=== PATIENT | male | born 1975 | race American Indian/Alaskan Native ===

== ENCOUNTER 2016-12-06 09:58 | Emergency (ER) | payer OTHER ==
[2016-12-06 10:48] LABS: Basophils % (Auto) 0.6 % (0.0-1.8); Eosinophils % (Auto) 1.1 % (0.0-4.3); Hematocrit 41.7 % (35.5-45.6); Hemoglobin 13.4 gm/dl (11.8-15.2); Mean Corpuscular HGB Conc 32 % (32-34); Mean Corpuscular Hemoglobin 27 pg (28-32); Mean Corpuscular Volume 84 fl (84-94); Platelet Count 277 K/mm3 (140-440); Red Blood Count 4.97 M/mm3 (3.65-5.03); Red Cell Distribution Width 12.9 % (13.2-15.2); White Blood Count 7.2 K/mm3 (4.5-11.0)
[2016-12-06 10:52] LABS: Anion Gap 16 mmol/L; BUN/Creatinine Ratio 16.25; Blood Urea Nitrogen 13 mg/dL (9-20); Calcium 9.2 mg/dL (8.4-10.2); Carbon Dioxide 28 mmol/L (22-30); Chloride 101.8 mmol/L (98-107); Glucose 92 mg/dL (75-100); Potassium 3.9 mmol/L (3.6-5.0); Sodium 142 mmol/L (137-145)
[2016-12-06 11:10] LABS: INR 1.06 (0.87-1.13); Partial Thromboplastin Time 28.8 Sec. (24.2-36.6)
[2016-12-06] MEDS ORDERED: NACL 0.9% 1000 ML 1,000 ML IV ONE (12:04)
--- NOTE | 2016-12-06 12:04 | Emergency Department Report ---
ED Palpitations HPI - General Chief Complaint: Arrhythmia/Palpitations Stated Complaint: FATIGUE,MUSCLES ACHE Time Seen by Provider: 12/06/16 11:46 Source: patient Mode of arrival: Ambulatory Limitations: No Limitations - History of Present Illness MD Complaint: rapid heart beat, "heart racing", "skipped beats", palpitations, irregular heart beat -: Sudden Arrythmia History: atrial fibrillation Associated Symptoms: near-syncope. denies: chest pain, shortness of breath, syncope, nausea/vomiting, anxiety, diaphoresis, cough, parasthesias, feeling of impending doom - Related Data Home Medications Medication Instructions Recorded Confirmed Last Taken Tamsulosin [Flomax] 0.4 mg PO QHS 10/25/13 12/06/16 10/04/16 21:00 Losartan [Cozaar] 100 mg PO QDAY 01/19/14 12/06/16 10/04/16 20:00 NIFEdipine [NIFEdipine ER] 90 mg PO DAILY 06/08/14 12/06/16 10/04/16 08:00 Aspirin BABY CHEW TAB 325 mg PO QDAY 10/04/16 12/06/16 10/04/16 08:00 Hydrochlorothiazide [HCTZ] 50 mg PO QDAY 10/04/16 12/06/16 10/04/16 10:00 Carvedilol [Coreg] 6.25 mg PO BID 12/06/16 12/06/16 Unknown Flecainide [Tambocor] 100 mg PO Q12H 12/06/16 12/06/16 Unknown Pot Chloride/Deangelo Phos/Mag 1 each PO QDAY 12/06/16 12/06/16 Unknown [Medi-Lyte Tablet] Previous Rx's Medication Instructions Recorded Last Taken Type Dabigatran [Pradaxa] 150 mg PO BID #90 capsule 12/06/16 Unknown Rx Allergies Allergy/AdvReac Type Severity Reaction Status Date / Time No Known Allergies Allergy Verified 12/06/16 10:05 ED Review of Systems ROS: Stated complaint: FATIGUE,MUSCLES ACHE Other details as noted in HPI Comment: All other systems reviewed and negative ED Past Medical Hx - Past Medical History Hx Hypertension: Yes Hx Congestive Heart Failure: Yes Hx Diabetes: No Hx Arthritis: Yes Hx Asthma: No Hx COPD: No Hx HIV: No Additional medical history: Enlarged prostate, atrial fibrillation, Obstructive sleep apnea, carl's angina. - Surgical History Past Surgical History?: No - Social History Smoking Status: Former Smoker Substance Use Type: None - Medications Home Medications: Home Medications Medication Instructions Recorded Confirmed Last Taken Type Tamsulosin [Flomax] 0.4 mg PO QHS 10/25/13 12/06/16 10/04/16 21:00 History Losartan [Cozaar] 100 mg PO QDAY 01/19/14 12/06/16 10/04/16 20:00 History NIFEdipine [NIFEdipine ER] 90 mg PO DAILY 06/08/14 12/06/16 10/04/16 08:00 History Aspirin BABY CHEW TAB 325 mg PO QDAY 10/04/16 12/06/16 10/04/16 08:00 History Hydrochlorothiazide [HCTZ] 50 mg PO QDAY 10/04/16 12/06/16 10/04/16 10:00 History Carvedilol [Coreg] 6.25 mg PO BID 12/06/16 12/06/16 Unknown History Dabigatran [Pradaxa] 150 mg PO BID #90 capsule 12/06/16 Unknown Rx Flecainide [Tambocor] 100 mg PO Q12H 12/06/16 12/06/16 Unknown History Pot Chloride/Deangelo Phos/Mag 1 each PO QDAY 12/06/16 12/06/16 Unknown History [Medi-Lyte Tablet] ED Physical Exam - General Limitations: No Limitations General appearance: alert, in no apparent distress - Head Head exam: Present: atraumatic, normocephalic - Eye Eye exam: Present: normal appearance - ENT ENT exam: Present: normal exam, normal orophraynx, mucous membranes moist - Neck Neck exam: Present: normal inspection - Respiratory Respiratory exam: Present: normal lung sounds bilaterally. Absent: respiratory distress - Cardiovascular Cardiovascular Exam: Present: tachycardia, irregular rhythm. Absent: systolic murmur, diastolic murmur, rubs, gallop - GI/Abdominal GI/Abdominal exam: Present: soft, normal bowel sounds - Rectal Rectal exam: Present: deferred - Extremities Exam Extremities exam: Present: normal inspection - Back Exam Back exam: Present: normal inspection - Neurological Exam Neurological exam: Present: alert, oriented X3 - Psychiatric Psychiatric exam: Present: normal affect, normal mood - Skin Skin exam: Present: warm, dry, intact, normal color. Absent: rash ED Course Vital Signs 12/06/16 12/06/16 12/06/16 10:07 11:55 11:56 Temperature 99.0 F Pulse Rate 66 Respiratory 17 Rate Blood Pressure 148/97 147/91 O2 Sat by Pulse 100 99 99 Oximetry 12/06/16 12/06/16 12/06/16 11:58 12:00 12:02 Temperature Pulse Rate 63 99 H 75 Respiratory 11 L 14 14 Rate Blood Pressure 147/91 130/100 130/100 O2 Sat by Pulse 98 99 100 Oximetry 12/06/16 12/06/16 12/06/16 12:04 12:06 12:08 Temperature Pulse Rate 82 86 84 Respiratory 12 13 22 Rate Blood Pressure 130/100 130/100 130/100 O2 Sat by Pulse 99 98 99 Oximetry 12/06/16 12/06/16 12/06/16 12:10 12:12 12:14 Temperature Pulse Rate 85 102 H 97 H Respiratory 19 12 21 Rate Blood Pressure 130/100 130/100 130/100 O2 Sat by Pulse 97 99 98 Oximetry 12/06/16 12/06/16 12:16 12:53 Temperature Pulse Rate 125 H Respiratory 22 14 Rate Blood Pressure 130/100 O2 Sat by Pulse 98 Oximetry ED Medical Decision Making - Lab Data Result diagrams: 12/06/16 10:20 12/06/16 10:20 - EKG Data -: EKG Interpreted by Me Rate: tachycardia - EKG Data Interpretation: unchanged when compared t - Radiology Data Radiology results: report reviewed, image reviewed - Medical Decision Making patient seen here by me and his a normal rate btw 80-95 , on flutter, cardiology saw the patient here in the er and recommended to increase flecaniode , and put him or pradoxa for anticoagulation. Critical care attestation.: If time is entered above; I have spent that time in minutes in the direct care of this critically ill patient, excluding procedure time. ED Disposition Clinical Impression: Heart failure, Paroxysmal atrial fibrillation Disposition: DISCHARGED TO HOME OR SELFCARE Is pt being admited?: No Does the pt Need Aspirin: No Condition: Good Instructions: Palpitations (ED), Supraventricular Tachycardia (ED) Prescriptions: Dabigatran [Pradaxa] 150 mg PO BID #90 capsule Time of Disposition: 14:04
--- NOTE | 2016-12-06 14:09 | Consultation ---
History of Present Illness Consult date: 12/06/16 Consult reason: atrial fibrillation History of present illness: The patient's a 41-year-old man with a history of chronic intermittent atrial fibrillation, and a mild to moderate nonischemic cardiomyopathy. A cardiac catheterization 2 years ago demonstrated normal coronaries, and his left ventricular ejection fraction has been 40-45% by echocardiogram and left ventricle angiography. He has been treated with multiple antiarrhythmic medications in the past, initially with amiodarone for atrial fibrillation suppression. 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 He was switched to sotalol, which was ultimately discontinued for poor efficaciously. Currently he is on flecainide, which is being titrated by his branch sales and service representative. His past several office echocardiograms have demonstrated a persistence of atrial fibrillation. Ultimately, he is being considered for possible atrial fibrillation ablation in the near future. He presents to the emergency room at this time with palpitations, an ECG demonstrated atrial fibrillation. His rate control on my visit to his bedside in the emergency room is reasonable at 96 to 100s ventricular rate. He is otherwise comfortable, no chest pain, no edema and no unusual shortness of breath. For unclear reasons, he no longer takes his Pradaxa for oral anticoagulation. There is no recent history of bleeding, anemia and his hematocrit on the current visit is normal at 41. Past History Past Medical History: atrial fib, heart failure Medications and Allergies Allergies Allergy/AdvReac Type Severity Reaction Status Date / Time No Known Allergies Allergy Verified 12/06/16 10:05 Home Medications Medication Instructions Recorded Confirmed Last Taken Type Tamsulosin [Flomax] 0.4 mg PO QHS 10/25/13 12/06/16 10/04/16 21:00 History Losartan [Cozaar] 100 mg PO QDAY 01/19/14 12/06/16 10/04/16 20:00 History NIFEdipine [NIFEdipine ER] 90 mg PO DAILY 06/08/14 12/06/16 10/04/16 08:00 History Aspirin BABY CHEW TAB 325 mg PO QDAY 10/04/16 12/06/16 10/04/16 08:00 History Hydrochlorothiazide [HCTZ] 50 mg PO QDAY 10/04/16 12/06/16 10/04/16 10:00 History Carvedilol [Coreg] 6.25 mg PO BID 12/06/16 12/06/16 Unknown History Dabigatran [Pradaxa] 150 mg PO BID #90 capsule 12/06/16 Unknown Rx Flecainide [Tambocor] 100 mg PO Q12H 12/06/16 12/06/16 Unknown History Pot Chloride/Deangelo Phos/Mag 1 each PO QDAY 12/06/16 12/06/16 Unknown History [Medi-Lyte Tablet] Review of Systems Cardiovascular: palpitations, shortness of breath, no chest pain, no orthopnea, no rapid/irregular heart beat, no edema, no syncope, no lightheadedness Physical Examination Vital Signs Temp Pulse Resp BP Pulse Ox 99.0 F 66 17 148/97 100 12/06/16 10:07 12/06/16 10:07 12/06/16 10:07 12/06/16 10:07 12/06/16 10:07 General appearance: no acute distress HEENT: Positive: PERRL Neck: Positive: neck supple Cardiac: Positive: irregularly irregular Lungs: Positive: clear to auscultation Neuro: Positive: Grossly Intact Abdomen: Positive: Soft Male genitourinary: Positive: deferred Skin: Positive: Clear Extremities: Absent: edema Results 12/06/16 10:20 12/06/16 10:20 Coagulation 12/06/16 Range/Units 10:20 PT 13.7 (12.2-14.9) Sec. INR 1.06 (0.87-1.13) APTT 28.8 (24.2-36.6) Sec. CBC 12/06/16 Range/Units 10:20 WBC 7.2 (4.5-11.0) K/mm3 RBC 4.97 (3.65-5.03) M/mm3 Hgb 13.4 (11.8-15.2) gm/dl Hct 41.7 (35.5-45.6) % Plt Count 277 (140-440) K/mm3 Lymph # 2.1 (1.2-5.4) K/mm3 Power # 1.1 H (0.0-0.8) K/mm3 Eos # 0.1 (0.0-0.4) K/mm3 Baso # 0.0 (0.0-0.1) K/mm3 Comprehensive Metabolic Panel 06/01/17 Range/Units 10:20 Sodium 142 (137-145) mmol/L Potassium 3.9 (3.6-5.0) mmol/L Chloride 101.8 (98-107) mmol/L Carbon Dioxide 28 (22-30) mmol/L BUN 13 (9-20) mg/dL Creatinine 0.8 (0.8-1.5) mg/dL Glucose 92 (75-100) mg/dL Calcium 9.2 (8.4-10.2) mg/dL EKG interpretations - Telemetry EKG Rhythm: Atrial Fibrillation Assessment and Plan - Patient Problems (1) Atrial fibrillation with rapid ventricular response Current Visit: No Status: Acute Plan to address problem: The patient should continue flecainide for his atrial fibrillation, but we will resume Pradaxa 150 mg twice a day, oral anticoagulation. Otherwise, he is stable to follow up with his branch sales and service representative in the outpatient in a few days. No further inpatient cardiac workup is indicated.
[2016-12-06 14:50] VITALS: BP 134/94
== END 2016-12-06 15:08 | disposition home or self-care (01) ==
LOC: ED 09:58
DX: I50.9 Heart failure, unspecified (principal); I48.0 Paroxysmal atrial fibrillation; I10 Essential (primary) hypertension; M19.90 Unspecified osteoarthritis, unspecified site; Z87.891 Personal history of nicotine dependence; Z79.82 Long term (current) use of aspirin
CPT/HCPCS: 36415; 80048; 84484; 85025; 85610; 85730; 93005; 93010; 96360; 99284; J7030

== ENCOUNTER 2017-02-28 19:42 | Emergency (ER) | payer OTHER ==
[2017-02-28 20:02] VITALS: BP 126/88
[2017-02-28] MEDS ORDERED: ZOFRAN ONE (20:36)
[2017-02-28] MEDS ORDERED: TORADOL ONE (20:36)
[2017-02-28] MEDS ORDERED: NACL 0.9% 1000 ML 0 ML ONE (20:37)
[2017-02-28] MEDS ORDERED: MORPHINE ONE (20:37)
--- NOTE | 2017-02-28 20:42 | Emergency Department Report ---
ED Male HPI - General Chief complaint: Urogenital-Male Stated complaint: BURNING SENSATION,LOWER ABD PAIN Time Seen by Provider: 02/28/17 20:31 Source: patient Mode of arrival: Ambulatory Limitations: No Limitations - History of Present Illness Initial comments: This is a 41-year-old male nontoxic, well nourished in appearance, no acute signs of distress presently ED complaining of a penile discharge, dysuria 2 weeks. That he had intermittent low abdominal cramps but denies any abdominal cramps or abdominal pain today. Patient stated 2 weeks ago he had sex with his partner but admitted she was diagnosed with gonorrhea/chlamydia. Patient that he wants to be checked for STD. Patient denies any abdominal pain, nausea, vomiting, fever, chills, headache, testicular pain, testicular swelling, stiff neck, chest pain or shortness of breath. Patient stated pedal discharge is white in color. Patient denies any odor. Denies any back pain. Denies any allergies or past medical history. MD Complaint: penile discharge, dysuria -: Gradual, week(s) (2) Location: penis Radiation: none Severity: mild Severity scale (0 -10): 4 Quality: burning Consistency: constant Improves with: none Worsens with: none discharge, dysuria. denies: swelling, mass, rash, urinary retention, blood in urine, fever, nausea/vomiting, incontinence - Related Data Home Medications Medication Instructions Recorded Confirmed Last Taken Tamsulosin [Flomax] 0.4 mg PO QHS 10/25/13 12/06/16 10/04/16 21:00 Losartan [Cozaar] 100 mg PO QDAY 01/19/14 12/06/16 10/04/16 20:00 NIFEdipine [NIFEdipine ER] 90 mg PO DAILY 06/08/14 12/06/16 10/04/16 08:00 Aspirin BABY CHEW TAB 325 mg PO QDAY 10/04/16 12/06/16 10/04/16 08:00 Hydrochlorothiazide [HCTZ] 50 mg PO QDAY 10/04/16 12/06/16 10/04/16 10:00 Carvedilol [Coreg] 6.25 mg PO BID 12/06/16 12/06/16 Unknown Flecainide [Tambocor] 100 mg PO Q12H 12/06/16 12/06/16 Unknown Pot Chloride/Deangelo Phos/Mag 1 each PO QDAY 12/06/16 12/06/16 Unknown [Medi-Lyte Tablet] Previous Rx's Medication Instructions Recorded Last Taken Type Dabigatran [Pradaxa] 150 mg PO BID #90 capsule 12/06/16 Unknown Rx Sulfamethoxazole/Trimethoprim 1 each PO BID #20 tablet 02/28/17 Unknown Rx [Bactrim DS TAB] Allergies Allergy/AdvReac Type Severity Reaction Status Date / Time No Known Allergies Allergy Verified 12/06/16 10:05 ED Review of Systems ROS: Stated complaint: BURNING SENSATION,LOWER ABD PAIN Other details as noted in HPI Constitutional: denies: chills, fever Eyes: denies: eye pain, eye discharge, vision change ENT: denies: ear pain, throat pain Respiratory: denies: cough, shortness of breath, wheezing Cardiovascular: denies: chest pain, palpitations Endocrine: no symptoms reported Gastrointestinal: denies: abdominal pain, nausea, diarrhea Genitourinary: dysuria, discharge. denies: urgency, frequency, hematuria, testicular pain, testicular mass Musculoskeletal: denies: back pain, joint swelling, arthralgia Skin: denies: rash, lesions Neurological: denies: headache, weakness, paresthesias Psychiatric: denies: anxiety, depression Hematological/Lymphatic: denies: easy bleeding, easy bruising ED Past Medical Hx - Past Medical History Previous Medical History?: Yes Hx Hypertension: Yes Hx Congestive Heart Failure: Yes Hx Diabetes: No Hx Arthritis: Yes Hx Asthma: No Hx COPD: No Hx HIV: No Additional medical history: Enlarged prostate, atrial fibrillation, Obstructive sleep apnea, carl's angina. - Surgical History Past Surgical History?: No - Social History Smoking Status: Never Smoker Substance Use Type: None - Medications Home Medications: Home Medications Medication Instructions Recorded Confirmed Last Taken Type Tamsulosin [Flomax] 0.4 mg PO QHS 10/25/13 12/06/16 10/04/16 21:00 History Losartan [Cozaar] 100 mg PO QDAY 01/19/14 12/06/16 10/04/16 20:00 History NIFEdipine [NIFEdipine ER] 90 mg PO DAILY 06/08/14 12/06/16 10/04/16 08:00 History Aspirin BABY CHEW TAB 325 mg PO QDAY 10/04/16 12/06/16 10/04/16 08:00 History Hydrochlorothiazide [HCTZ] 50 mg PO QDAY 10/04/16 12/06/16 10/04/16 10:00 History Carvedilol [Coreg] 6.25 mg PO BID 12/06/16 12/06/16 Unknown History Dabigatran [Pradaxa] 150 mg PO BID #90 capsule 12/06/16 Unknown Rx Flecainide [Tambocor] 100 mg PO Q12H 12/06/16 12/06/16 Unknown History Pot Chloride/Deangelo Phos/Mag 1 each PO QDAY 12/06/16 12/06/16 Unknown History [Medi-Lyte Tablet] Sulfamethoxazole/Trimethoprim 1 each PO BID #20 tablet 02/28/17 Unknown Rx [Bactrim DS TAB] ED Physical Exam - General Limitations: No Limitations General appearance: alert, in no apparent distress - Head Head exam: Present: atraumatic, normocephalic, normal inspection - Eye Eye exam: Present: normal appearance, PERRL, EOMI. Absent: scleral icterus, conjunctival injection, nystagmus, periorbital swelling, periorbital tenderness Pupils: Present: normal accommodation - ENT ENT exam: Present: normal exam, normal orophraynx, mucous membranes moist, TM's normal bilaterally, normal external ear exam - Neck Neck exam: Present: normal inspection, full ROM. Absent: tenderness, meningismus, lymphadenopathy, thyromegaly - Respiratory Respiratory exam: Present: normal lung sounds bilaterally. Absent: respiratory distress, wheezes, rales, rhonchi, stridor, chest wall tenderness, accessory muscle use, decreased breath sounds, prolonged expiratory - Cardiovascular Cardiovascular Exam: Present: regular rate, normal rhythm, normal heart sounds. Absent: bradycardia, tachycardia, irregular rhythm, systolic murmur, diastolic murmur, rubs, gallop - GI/Abdominal GI/Abdominal exam: Present: soft, normal bowel sounds. Absent: distended, tenderness, rebound, rigid, diminished bowel sounds - Rectal Rectal exam: Present: deferred - exam: Present: normal inspection. Absent: testicular tenderness, urethral discharge, scrotal swelling, vertical testicular lie, circumcision External exam: Present: normal external exam. Absent: erythema, swelling, lesions, lacerations, ecchymosis, bleeding - Extremities Exam Extremities exam: Present: normal inspection, full ROM, normal capillary refill. Absent: tenderness, pedal edema, joint swelling, calf tenderness - Back Exam Back exam: Present: normal inspection, full ROM. Absent: tenderness, CVA tenderness (R), CVA tenderness (L), muscle spasm, paraspinal tenderness, vertebral tenderness, rash noted - Neurological Exam Neurological exam: Present: alert, oriented X3, CN II-XII intact, normal gait, reflexes normal - Psychiatric Psychiatric exam: Present: normal affect, normal mood - Skin Skin exam: Present: warm, dry, intact, normal color. Absent: rash ED Course Vital Signs 02/28/17 19:57 Temperature 98.8 F Pulse Rate 74 Respiratory 16 Rate Blood Pressure 126/88 O2 Sat by Pulse 97 Oximetry - Reevaluation(s) Reevaluation #1: 02/28/17 20:43 Patient is speaking in full sentences with no signs of distress noted. Critical care attestation.: If time is entered above; I have spent that time in minutes in the direct care of this critically ill patient, excluding procedure time. ED Disposition Clinical Impression: Possible exposure to STD UTI (urinary tract infection) Qualifiers: Urinary tract infection type: site unspecified Hematuria presence: without hematuria Qualified Code(s): N39.0 - Urinary tract infection, site not specified Disposition: DC-01 TO HOME OR SELFCARE Is pt being admited?: No Does the pt Need Aspirin: No Condition: Stable Instructions: Safe Sex (ED), Urinary Tract Infection in Men (ED) Additional Instructions: Follow-up with Medical Record to obtained your results of gonorrhea/chlamydia in 3 days. Follow up with a primary care doctor in 3-5 days or symptoms worsen or continue presented to emergency room as soon as possible. It is important that you practice safe sex using protection. Prescriptions: Sulfamethoxazole/Trimethoprim [Bactrim DS TAB] 1 each PO BID #20 tablet Referrals: PRIMARY CAREMD [Primary Care Provider] - 3-5 Days LORIE HOLDER MD [Staff Physician] - 3-5 Days [facility] [Outside] - 3-5 Days [facility] [Outside] - 3-5 Days Forms: Work/School Release Form(ED)
[2017-02-28] MEDS ORDERED: XYLOCAINE 1% MPF 5 mL INFILTRATI ONE (20:45)
[2017-02-28] MEDS ORDERED: ROCEPHIN IM ONE (20:45)
[2017-02-28] MEDS ORDERED: ZITHROMAX PO ONE (20:45)
[2017-02-28 20:56] LABS: Bacteria,Urine 1+ /HPF (Negative); Bilirubin,Urine NEG (Negative); Blood,Urine SM (Negative); Ketones,Urine TR mg/dL (Negative); Leukocyte Esterase,Urine MOD (Negative); Mucus,Urine 1+ /HPF; Nitrite,Urine NEG (Negative)
== END 2017-02-28 21:23 | disposition home or self-care (01) ==
LOC: ED 19:42
DX: N39.0 Urinary tract infection, site not specified (principal); I10 Essential (primary) hypertension
CPT/HCPCS: 81001; 87591; 96372; 99283; J0696; J1885; J2270; J2405; J7030

== ENCOUNTER 2017-03-14 16:10 | Emergency (ER) | payer SELFPAY ==
[2017-03-14 16:25] VITALS: BP 132/96
[2017-03-14 17:41] LABS: Bilirubin,Urine NEG (Negative); Blood,Urine SM (Negative); Ketones,Urine NEG (Negative); Leukocyte Esterase,Urine TR (Negative); Nitrite,Urine NEG (Negative); Protein,Urine <15 mg/dL mg/dL (Negative); Urobilinogen,Urine < 2.0 mg/dL (<2.0)
--- NOTE | 2017-03-14 18:15 | Emergency Department Report ---
ED Male HPI - General Chief complaint: Urogenital-Male Stated complaint: ABDOMINAL PAIN, UTI Time Seen by Provider: 03/14/17 17:24 Source: patient Mode of arrival: Ambulatory Limitations: No Limitations - History of Present Illness Initial comments: pt is a nontoxic 41 y/o aam dysuria and penile tingling x 2 weeks tx with rocephin and azithromycinin 02/28/2017 for sti, dc'd to home with bactrim po for uti. pt denies sexual contact since tx , requesting different medication. pt denies fever chills no n/v no abdominal pain no hematuria no penile discharge Complaint: dysuria Onset/Timin -: week(s) Location: penis Radiation: none Severity: moderate Severity scale (0 -10): 3 Quality: other (itching / tingling with voiding ) Consistency: intermittent Improves with: none Worsens with: urination dysuria. denies: discharge, swelling, mass, rash, urinary retention, blood in urine, fever, nausea/vomiting, incontinence - Related Data Home Medications Medication Instructions Recorded Confirmed Last Taken Tamsulosin [Flomax] 0.4 mg PO QHS 10/25/13 12/06/16 10/04/16 21:00 Losartan [Cozaar] 100 mg PO QDAY 01/19/14 12/06/16 10/04/16 20:00 NIFEdipine [NIFEdipine ER] 90 mg PO DAILY 06/08/14 12/06/16 10/04/16 08:00 Aspirin BABY CHEW TAB 325 mg PO QDAY 10/04/16 12/06/16 10/04/16 08:00 Hydrochlorothiazide [HCTZ] 50 mg PO QDAY 10/04/16 12/06/16 10/04/16 10:00 Carvedilol [Coreg] 6.25 mg PO BID 12/06/16 12/06/16 Unknown Flecainide [Tambocor] 100 mg PO Q12H 12/06/16 12/06/16 Unknown Pot Chloride/Deangelo Phos/Mag 1 each PO QDAY 12/06/16 12/06/16 Unknown [Medi-Lyte Tablet] Previous Rx's Medication Instructions Recorded Last Taken Type Dabigatran [Pradaxa] 150 mg PO BID #90 capsule 12/06/16 Unknown Rx Sulfamethoxazole/Trimethoprim 1 each PO BID #20 tablet 02/28/17 Unknown Rx [Bactrim DS TAB] Doxycycline [Vibramycin CAP] 100 mg PO Q12HR #20 capsule 03/14/17 Unknown Rx Allergies Allergy/AdvReac Type Severity Reaction Status Date / Time No Known Allergies Allergy Verified 03/14/17 16:24 ED Review of Systems ROS: Stated complaint: ABDOMINAL PAIN, UTI Other details as noted in HPI Constitutional: denies: chills, fever Eyes: denies: eye pain, eye discharge, vision change ENT: denies: ear pain, throat pain Respiratory: denies: cough, shortness of breath, wheezing Cardiovascular: denies: chest pain, palpitations Endocrine: no symptoms reported Gastrointestinal: denies: abdominal pain, nausea, diarrhea Genitourinary: urgency, dysuria, frequency. denies: hematuria, discharge, testicular pain, testicular mass Musculoskeletal: denies: back pain, joint swelling, arthralgia Skin: denies: rash, lesions Neurological: as per HPI Psychiatric: denies: anxiety, depression Hematological/Lymphatic: denies: easy bleeding, easy bruising ED Past Medical Hx - Past Medical History Previous Medical History?: Yes Hx Hypertension: Yes Hx Congestive Heart Failure: Yes Hx Diabetes: No Hx Arthritis: Yes Hx Asthma: No Hx COPD: No Hx HIV: No Additional medical history: Enlarged prostate, atrial fibrillation, Obstructive sleep apnea, carl's angina. - Surgical History Past Surgical History?: No - Social History Smoking Status: Never Smoker Substance Use Type: None - Medications Home Medications: Home Medications Medication Instructions Recorded Confirmed Last Taken Type Tamsulosin [Flomax] 0.4 mg PO QHS 10/25/13 12/06/16 10/04/16 21:00 History Losartan [Cozaar] 100 mg PO QDAY 01/19/14 12/06/16 10/04/16 20:00 History NIFEdipine [NIFEdipine ER] 90 mg PO DAILY 06/08/14 12/06/16 10/04/16 08:00 History Aspirin BABY CHEW TAB 325 mg PO QDAY 10/04/16 12/06/16 10/04/16 08:00 History Hydrochlorothiazide [HCTZ] 50 mg PO QDAY 10/04/16 12/06/16 10/04/16 10:00 History Carvedilol [Coreg] 6.25 mg PO BID 12/06/16 12/06/16 Unknown History Dabigatran [Pradaxa] 150 mg PO BID #90 capsule 12/06/16 Unknown Rx Flecainide [Tambocor] 100 mg PO Q12H 12/06/16 12/06/16 Unknown History Pot Chloride/Deangelo Phos/Mag 1 each PO QDAY 12/06/16 12/06/16 Unknown History [Medi-Lyte Tablet] Sulfamethoxazole/Trimethoprim 1 each PO BID #20 tablet 02/28/17 Unknown Rx [Bactrim DS TAB] Doxycycline [Vibramycin CAP] 100 mg PO Q12HR #20 capsule 03/14/17 Unknown Rx ED Physical Exam - General Limitations: No Limitations General appearance: alert, in no apparent distress - Head Head exam: Present: atraumatic, normocephalic - Eye Eye exam: Present: normal appearance - ENT ENT exam: Present: mucous membranes moist - Neck Neck exam: Present: normal inspection - Respiratory Respiratory exam: Present: normal lung sounds bilaterally. Absent: respiratory distress - Cardiovascular Cardiovascular Exam: Present: regular rate, normal rhythm. Absent: systolic murmur, diastolic murmur, rubs, gallop - GI/Abdominal GI/Abdominal exam: Present: soft, normal bowel sounds - Rectal Rectal exam: Present: deferred - exam: Present: normal inspection, circumcision. Absent: testicular tenderness, urethral discharge, scrotal swelling, vertical testicular lie External exam: Present: normal external exam. Absent: erythema, swelling, lesions, lacerations, ecchymosis, bleeding - Extremities Exam Extremities exam: Present: normal inspection - Back Exam Back exam: Present: normal inspection - Neurological Exam Neurological exam: Present: alert, oriented X3 - Psychiatric Psychiatric exam: Present: normal affect, normal mood - Skin Skin exam: Present: warm, dry, intact, normal color. Absent: rash ED Course Vital Signs 03/14/17 16:20 Temperature 98.5 F Pulse Rate 71 Respiratory 16 Rate Blood Pressure 132/96 O2 Sat by Pulse 99 Oximetry ED Medical Decision Making - Lab Data Laboratory Tests 03/14/17 Unknown Urine Color Yellow Urine Turbidity Clear Urine pH 6.0 Ur Specific [place] 1.015 Urine Protein <15 mg/dl Urine Glucose (UA) 50 Urine Ketones Neg Urine Blood Sm Urine Nitrite Neg Urine Bilirubin Neg Urine Urobilinogen < 2.0 Ur Leukocyte Esterase Tr Urine WBC (Auto) 13.0 H Urine RBC (Auto) 6.0 - Medical Decision Making pt is a nontoxic 41 y/o aam dysuria and penile tingling x 2 weeks tx with rocephin and azithromycinin 02/28/2017 for sti, dc'd to home with bactrim po for uti. pt denies sexual contact since tx , requesting different medication. pt denies fever chills no n/v no abdominal pain no hematuria no penile discharge exam: no rash no lesion no open sores, no penile discharge: UA: pos wbc, gc/ch pending, pt advises adherence to other medications including flomax, bp meds, pt completed bactrim ds, patient has good primary care follow up will refer to same for evaluation and follow up for continue syptoms. plan: Doxycycline 100 mg po bid x 10 days, and follow up with health department or pcp for hiv screening. pt verbalized agreement and understanding with discharge plan. Critical care attestation.: If time is entered above; I have spent that time in minutes in the direct care of this critically ill patient, excluding procedure time. ED Disposition Clinical Impression: Dysuria Disposition: DC-01 TO HOME OR SELFCARE Is pt being admited?: No Does the pt Need Aspirin: No Condition: Good Instructions: Safe Sex (ED) Prescriptions: Doxycycline [Vibramycin CAP] 100 mg PO Q12HR #20 capsule Referrals: PRIMARY CARE, [Primary Care Provider] - 3-5 Days Forms: Work/School Release Form(ED) Time of Disposition: 18:23
== END 2017-03-14 18:35 | disposition home or self-care (01) ==
LOC: ED 16:10
DX: R30.0 Dysuria (principal); I10 Essential (primary) hypertension; I50.9 Heart failure, unspecified
CPT/HCPCS: 81001; 99283

== ENCOUNTER 2017-04-05 17:47 | Emergency (ER) | payer SELFPAY ==
[2017-04-05] MEDS ORDERED: TYLENOL PO ONE (18:17)
--- NOTE | 2017-04-05 23:31 | Emergency Department Report ---
ED ENT HPI - General Chief complaint: Dental/Oral Stated complaint: TOOTHACHE Time Seen by Provider: 04/05/17 23:20 Source: patient Mode of arrival: Ambulatory Limitations: No Limitations - History of Present Illness Initial comments: pt is a 41 y/o aam with hx of dental caries presents for dental pain today x 2 week pt has dental appointment with [facility] 04/20/2017 for tx of same, pt endorses 7/10 toothache at this time no fever no chills no sore throat no ear pain no n/v pt is tolerating po intake without difficulty. MD complaint: tooth pain Onset/Timin -: week(s) Location: tooth # (30) Severity scale (0 -10): 5 Quality: aching Consistency: constant Improves with: none Worsens with: other (hot and cold stimuli ) Associated Symptoms: toothache. denies: fever, cough, gum swelling, pain with swallowing, sore throat, tinnitus, hearing loss, discharge from ear, rhinorrhea - Related Data Home Medications Medication Instructions Recorded Confirmed Last Taken Tamsulosin [Flomax] 0.4 mg PO QHS 10/25/13 12/06/16 10/04/16 21:00 Losartan [Cozaar] 100 mg PO QDAY 01/19/14 12/06/16 10/04/16 20:00 NIFEdipine [NIFEdipine ER] 90 mg PO DAILY 06/08/14 12/06/16 10/04/16 08:00 Aspirin BABY CHEW TAB 325 mg PO QDAY 10/04/16 12/06/16 10/04/16 08:00 Hydrochlorothiazide [HCTZ] 50 mg PO QDAY 10/04/16 12/06/16 10/04/16 10:00 Carvedilol [Coreg] 6.25 mg PO BID 12/06/16 12/06/16 Unknown Flecainide [Tambocor] 100 mg PO Q12H 12/06/16 12/06/16 Unknown Pot Chloride/Deangelo Phos/Mag 1 each PO QDAY 12/06/16 12/06/16 Unknown [Medi-Lyte Tablet] Previous Rx's Medication Instructions Recorded Last Taken Type Dabigatran [Pradaxa] 150 mg PO BID #90 capsule 12/06/16 Unknown Rx Sulfamethoxazole/Trimethoprim 1 each PO BID #20 tablet 02/28/17 Unknown Rx [Bactrim DS TAB] Doxycycline [Vibramycin CAP] 100 mg PO Q12HR #20 capsule 03/14/17 Unknown Rx Amoxicillin 500 mg PO TID #30 capsule 04/05/17 Unknown Rx Naproxen [Naprosyn] 500 mg PO BID PRN #60 tablet 04/05/17 Unknown Rx Allergies Allergy/AdvReac Type Severity Reaction Status Date / Time No Known Allergies Allergy Verified 03/14/17 16:24 ED Dental HPI - General Chief complaint: Dental/Oral Stated complaint: TOOTHACHE Time Seen by Provider: 04/05/17 23:20 Source: patient Mode of arrival: Ambulatory Limitations: No Limitations - History of Present Illness MD complaint: tooth pain - Related Data Home Medications Medication Instructions Recorded Confirmed Last Taken Tamsulosin [Flomax] 0.4 mg PO QHS 10/25/13 12/06/16 10/04/16 21:00 Losartan [Cozaar] 100 mg PO QDAY 01/19/14 12/06/16 10/04/16 20:00 NIFEdipine [NIFEdipine ER] 90 mg PO DAILY 06/08/14 12/06/16 10/04/16 08:00 Aspirin BABY CHEW TAB 325 mg PO QDAY 10/04/16 12/06/16 10/04/16 08:00 Hydrochlorothiazide [HCTZ] 50 mg PO QDAY 10/04/16 12/06/16 10/04/16 10:00 Carvedilol [Coreg] 6.25 mg PO BID 12/06/16 12/06/16 Unknown Flecainide [Tambocor] 100 mg PO Q12H 12/06/16 12/06/16 Unknown Pot Chloride/Deangelo Phos/Mag 1 each PO QDAY 12/06/16 12/06/16 Unknown [Medi-Lyte Tablet] Previous Rx's Medication Instructions Recorded Last Taken Type Dabigatran [Pradaxa] 150 mg PO BID #90 capsule 12/06/16 Unknown Rx Sulfamethoxazole/Trimethoprim 1 each PO BID #20 tablet 02/28/17 Unknown Rx [Bactrim DS TAB] Doxycycline [Vibramycin CAP] 100 mg PO Q12HR #20 capsule 03/14/17 Unknown Rx Amoxicillin 500 mg PO TID #30 capsule 04/05/17 Unknown Rx Naproxen [Naprosyn] 500 mg PO BID PRN #60 tablet 04/05/17 Unknown Rx Allergies Allergy/AdvReac Type Severity Reaction Status Date / Time No Known Allergies Allergy Verified 03/14/17 16:24 ED Review of Systems ROS: Stated complaint: TOOTHACHE Other details as noted in HPI Constitutional: denies: chills, fever Eyes: denies: eye pain, eye discharge, vision change ENT: dental pain Respiratory: denies: cough, shortness of breath, wheezing Cardiovascular: denies: chest pain, palpitations Endocrine: no symptoms reported Gastrointestinal: denies: abdominal pain, nausea, diarrhea Genitourinary: denies: urgency, dysuria Musculoskeletal: denies: back pain, joint swelling, arthralgia Skin: denies: rash, lesions Neurological: denies: headache, weakness, paresthesias Psychiatric: denies: anxiety, depression Hematological/Lymphatic: denies: easy bleeding, easy bruising ED Past Medical Hx - Past Medical History Hx Hypertension: Yes Hx Congestive Heart Failure: Yes Hx Diabetes: No Hx Arthritis: Yes Hx Asthma: No Hx COPD: No Hx HIV: No Additional medical history: Enlarged prostate, atrial fibrillation, Obstructive sleep apnea, carl's angina. - Surgical History Past Surgical History?: No - Social History Smoking Status: Never Smoker Substance Use Type: None - Medications Home Medications: Home Medications Medication Instructions Recorded Confirmed Last Taken Type Tamsulosin [Flomax] 0.4 mg PO QHS 10/25/13 12/06/16 10/04/16 21:00 History Losartan [Cozaar] 100 mg PO QDAY 01/19/14 12/06/16 10/04/16 20:00 History NIFEdipine [NIFEdipine ER] 90 mg PO DAILY 06/08/14 12/06/16 10/04/16 08:00 History Aspirin BABY CHEW TAB 325 mg PO QDAY 10/04/16 12/06/16 10/04/16 08:00 History Hydrochlorothiazide [HCTZ] 50 mg PO QDAY 10/04/16 12/06/16 10/04/16 10:00 History Carvedilol [Coreg] 6.25 mg PO BID 12/06/16 12/06/16 Unknown History Dabigatran [Pradaxa] 150 mg PO BID #90 capsule 12/06/16 Unknown Rx Flecainide [Tambocor] 100 mg PO Q12H 12/06/16 12/06/16 Unknown History Pot Chloride/Deangelo Phos/Mag 1 each PO QDAY 12/06/16 12/06/16 Unknown History [Medi-Lyte Tablet] Sulfamethoxazole/Trimethoprim 1 each PO BID #20 tablet 02/28/17 Unknown Rx [Bactrim DS TAB] Doxycycline [Vibramycin CAP] 100 mg PO Q12HR #20 capsule 03/14/17 Unknown Rx Amoxicillin 500 mg PO TID #30 capsule 04/05/17 Unknown Rx Naproxen [Naprosyn] 500 mg PO BID PRN #60 tablet 04/05/17 Unknown Rx ED Physical Exam - General Limitations: No Limitations General appearance: alert, in no apparent distress - Head Head exam: Present: atraumatic, normocephalic - Eye Eye exam: Present: normal appearance - ENT ENT exam: Present: mucous membranes moist, TM's normal bilaterally, normal external ear exam - Expanded ENT Exam Expanded Mouth exam: Present: tongue normal. Absent: trismus, tongue elevation Teeth exam: Present: dental caries (30), dental tenderness # (30) Throat exam: Positive: normal inspection. Negative: tonsillar erythema, tonsillomegaly, tonsillar exudate, R peritonsillar mass, L peritonsillar mass - Neck Neck exam: Present: normal inspection - Respiratory Respiratory exam: Present: normal lung sounds bilaterally. Absent: respiratory distress - Cardiovascular Cardiovascular Exam: Present: regular rate, normal rhythm. Absent: systolic murmur, diastolic murmur, rubs, gallop - GI/Abdominal GI/Abdominal exam: Present: soft, normal bowel sounds - Rectal Rectal exam: Present: deferred - Extremities Exam Extremities exam: Present: normal inspection - Back Exam Back exam: Present: normal inspection - Neurological Exam Neurological exam: Present: alert, oriented X3 - Psychiatric Psychiatric exam: Present: normal affect, normal mood - Skin Skin exam: Present: warm, dry, intact, normal color. Absent: rash ED Course Vital Signs 04/05/17 04/05/17 17:52 18:21 Temperature 98.6 F Pulse Rate 89 Respiratory 14 14 Rate Blood Pressure 131/78 O2 Sat by Pulse 97 Oximetry ED Medical Decision Making - Medical Decision Making pt is a 41 y/o aam with hx of dental caries presents for dental pain today x 2 week pt has dental appointment with [facility] [place] [facility] 04/20/2017 for tx of same, pt endorses 7/10 toothache at this time no fever no chills no sore throat no ear pain no n/v pt is tolerating po intake without difficulty. exam, mild gum erythema #30 no focal abscess plan: amoxicillin, naproxen follow up with [facility] as scheduled on 04/20/2017 pt verbalized agreement understanding with same. Critical care attestation.: If time is entered above; I have spent that time in minutes in the direct care of this critically ill patient, excluding procedure time. ED Disposition Clinical Impression: Infected dental caries Disposition: DC-01 TO HOME OR SELFCARE Is pt being admited?: No Does the pt Need Aspirin: No Condition: Good Instructions: Dental Caries (ED) Prescriptions: Amoxicillin 500 mg PO TID #30 capsule Naproxen [Naprosyn] 500 mg PO BID PRN #60 tablet PRN Reason: Pain Referrals: PRIMARY CARE, [Primary Care Provider] - 3-5 Days Forms: Work/School Release Form(ED) Time of Disposition: 23:55
[2017-04-06 00:04] VITALS: BP 127/85
== END 2017-04-06 00:03 | disposition home or self-care (01) ==
LOC: ED 17:47
DX: K02.9 Dental caries, unspecified (principal); I10 Essential (primary) hypertension; M19.90 Unspecified osteoarthritis, unspecified site; I50.9 Heart failure, unspecified; Z79.82 Long term (current) use of aspirin
CPT/HCPCS: 99282

== ENCOUNTER 2017-09-07 10:58 | Emergency (ER) | payer MEDICAID ==
[2017-09-07 11:03] VITALS: BP 140/95
[2017-09-07 11:40] LABS: Bilirubin,Urine NEG (Negative); Blood,Urine NEG (Negative); Color,Urine Straw (Yellow); Protein,Urine <15 mg/dL mg/dL (Negative); Urobilinogen,Urine < 2.0 mg/dL (<2.0); WBC,Urine < 1.0 /HPF (0.0-6.0)
--- NOTE | 2017-09-07 13:03 | Cat Scan Report ---
CT scan of abdomen and pelvis without IV contrast: History: Left upper quadrant and left lower quadrant pain. Findings: Normal lung bases. No pleural pericardial effusion. Normal liver spleen pancreas and gallbladder. Normal adrenals and kidney parenchyma. No hydronephrosis. Decompressed thickwalled urinary bladder. No free intraperitoneal fluid or air. No evidence of adenopathy. Suspected calcific mass or radiopaque foreign body measuring 1.2 cm in diameter in the mid pelvic region probably within the small bowel. Gaseous colon with moderate volume stool in colon. The appendix measures 7 mm in diameter, no evidence of appendicitis is noted. Impression: Suspected foreign body or calcific mass in the mid pelvis projection. Gaseous colon with stool in colon.
[2017-09-07 13:05] LABS: Basophils % (Auto) 0.6 % (0.0-1.8); Eosinophils % (Auto) 0.8 % (0.0-4.3); Hematocrit 38.6 % (35.5-45.6); Hemoglobin 12.8 gm/dl (11.8-15.2); Lymphocytes # (Auto) 1.9 K/mm3 (1.2-5.4); Lymphocytes % (Auto) 41.7 % (13.4-35.0); Mean Corpuscular HGB Conc 33 % (32-34); Mean Corpuscular Hemoglobin 28 pg (28-32); Mean Corpuscular Volume 84 fl (84-94); Monocytes # (Auto) 0.6 K/mm3 (0.0-0.8); Platelet Count 242 K/mm3 (140-440); Red Blood Count 4.62 M/mm3 (3.65-5.03); Red Cell Distribution Width 12.9 % (13.2-15.2)
[2017-09-07 13:10] LABS: Alanine Aminotransferase 9 units/L (7-56); Albumin 4.1 g/dL (3.9-5); BUN/Creatinine Ratio 14; Blood Urea Nitrogen 10 mg/dL (9-20); Calcium 8.9 mg/dL (8.4-10.2); Hemolysis Index 5; Lipase 26 units/L (13-60)
--- NOTE | 2017-09-07 13:22 | Emergency Department Report ---
ED General Adult HPI - General Chief complaint: Urogenital-Male Stated complaint: PAIN/PRESSURE IN UMBILICAL AREA Time Seen by Provider: 09/07/17 11:13 Source: patient Mode of arrival: Ambulatory Limitations: No Limitations - History of Present Illness Initial comments: This is a 42 y.o. male that presents with left side abdominal pain and dysuria for 1 week. Patient reports pain as sharp in bladder area and reports having these symptoms before and diagnosed with a UTI. He had a bowel movement yesterday that looked normal. Hx of afib, CHF, HTN, and arthritis. He is currently wearing a heart monitor from registered pharmacist. He have a f/u appointment next week with them. He is currently not having pain. Reports pain as intermittent. Denies nausea/vomiting, discharge, urgency, and frequency. -: week(s) (1) Location: abdomen (left side) Radiation: non-radiation Severity scale (0 -10): 0 Quality: burning (with voids), sharp (intermittent abdominal pain on the left side) Consistency: intermittent Improves with: none Worsens with: none Associated Symptoms: denies other symptoms Treatments Prior to Arrival: none - Related Data Home Medications Medication Instructions Recorded Confirmed Last Taken Tamsulosin [Flomax] 0.4 mg PO QHS 10/25/13 12/06/16 10/04/16 21:00 Losartan [Cozaar] 100 mg PO QDAY 01/19/14 12/06/16 10/04/16 20:00 NIFEdipine [NIFEdipine ER] 90 mg PO DAILY 06/08/14 12/06/16 10/04/16 08:00 Aspirin BABY CHEW TAB 325 mg PO QDAY 10/04/16 12/06/16 10/04/16 08:00 Hydrochlorothiazide [HCTZ] 50 mg PO QDAY 10/04/16 12/06/16 10/04/16 10:00 Carvedilol [Coreg] 6.25 mg PO BID 12/06/16 12/06/16 Unknown Flecainide [Tambocor] 100 mg PO Q12H 12/06/16 12/06/16 Unknown Pot Chloride/Deangelo Phos/Mag 1 each PO QDAY 12/06/16 12/06/16 Unknown [Medi-Lyte Tablet] Previous Rx's Medication Instructions Recorded Last Taken Type Dabigatran [Pradaxa] 150 mg PO BID #90 capsule 12/06/16 Unknown Rx Sulfamethoxazole/Trimethoprim 1 each PO BID #20 tablet 02/28/17 Unknown Rx [Bactrim DS TAB] Doxycycline [Vibramycin CAP] 100 mg PO Q12HR #20 capsule 03/14/17 Unknown Rx Amoxicillin 500 mg PO TID #30 capsule 04/05/17 Unknown Rx Naproxen [Naprosyn] 500 mg PO BID PRN #60 tablet 04/05/17 Unknown Rx Allergies Allergy/AdvReac Type Severity Reaction Status Date / Time No Known Allergies Allergy Verified 09/07/17 11:00 ED Review of Systems ROS: Stated complaint: PAIN/PRESSURE IN UMBILICAL AREA Other details as noted in HPI Constitutional: denies: chills, fever Respiratory: denies: cough, shortness of breath, wheezing Cardiovascular: denies: chest pain, palpitations Gastrointestinal: abdominal pain (left side of abdomen). denies: nausea, vomiting, diarrhea, constipation Genitourinary: dysuria. denies: urgency, frequency, hematuria, discharge Musculoskeletal: denies: back pain, joint swelling, arthralgia Neurological: denies: headache, weakness, paresthesias ED Past Medical Hx - Past Medical History Hx Hypertension: Yes Hx Congestive Heart Failure: Yes Hx Diabetes: No Hx Arthritis: Yes Hx Asthma: No Hx COPD: No Hx HIV: No Additional medical history: Enlarged prostate, atrial fibrillation, Obstructive sleep apnea, carl's angina. - Social History Smoking Status: Never Smoker Substance Use Type: None - Medications Home Medications: Home Medications Medication Instructions Recorded Confirmed Last Taken Type Tamsulosin [Flomax] 0.4 mg PO QHS 10/25/13 12/06/16 10/04/16 21:00 History Losartan [Cozaar] 100 mg PO QDAY 01/19/14 12/06/16 10/04/16 20:00 History NIFEdipine [NIFEdipine ER] 90 mg PO DAILY 06/08/14 12/06/16 10/04/16 08:00 History Aspirin BABY CHEW TAB 325 mg PO QDAY 10/04/16 12/06/16 10/04/16 08:00 History Hydrochlorothiazide [HCTZ] 50 mg PO QDAY 10/04/16 12/06/16 10/04/16 10:00 History Carvedilol [Coreg] 6.25 mg PO BID 12/06/16 12/06/16 Unknown History Dabigatran [Pradaxa] 150 mg PO BID #90 capsule 12/06/16 Unknown Rx Flecainide [Tambocor] 100 mg PO Q12H 12/06/16 12/06/16 Unknown History Pot Chloride/Deangelo Phos/Mag 1 each PO QDAY 12/06/16 12/06/16 Unknown History [Medi-Lyte Tablet] Sulfamethoxazole/Trimethoprim 1 each PO BID #20 tablet 02/28/17 Unknown Rx [Bactrim DS TAB] Doxycycline [Vibramycin CAP] 100 mg PO Q12HR #20 capsule 03/14/17 Unknown Rx Amoxicillin 500 mg PO TID #30 capsule 04/05/17 Unknown Rx Naproxen [Naprosyn] 500 mg PO BID PRN #60 tablet 04/05/17 Unknown Rx ED Physical Exam - General Limitations: No Limitations - Respiratory Respiratory exam: Present: normal lung sounds bilaterally. Absent: respiratory distress - Cardiovascular Cardiovascular Exam: Present: regular rate, normal rhythm. Absent: systolic murmur, diastolic murmur, rubs, gallop - GI/Abdominal GI/Abdominal exam: Present: soft, tenderness (LUQ), normal bowel sounds. Absent : distended, guarding, rebound, rigid, organomegaly, mass - Back Exam Back exam: Present: normal inspection, full ROM. Absent: CVA tenderness (R), CVA tenderness (L), muscle spasm - Neurological Exam Neurological exam: Present: alert, oriented X3, normal gait - Psychiatric Psychiatric exam: Present: normal affect, normal mood - Skin Skin exam: Present: warm, dry, intact, normal color. Absent: rash ED Course Vital Signs 09/07/17 11:00 Temperature 98.2 F Pulse Rate 68 Respiratory 16 Rate Blood Pressure 140/95 O2 Sat by Pulse 99 Oximetry ED Medical Decision Making - Lab Data Result diagrams: 09/07/17 12:29 09/07/17 12:29 - Radiology Data Radiology results: report reviewed Impression: Suspected foreign body or calcific mass in the mid pelvis projection. Gaseous colon with stool in colon. - Medical Decision Making 42 y.o. male that presents with abdominal pain and dysuria for 1 week. Patient examined by me. No distress noted. Currently not in pain. Vitals stable. CT of abdomen and pelvis obtained and read by radiologist. Patient informed of results and informed to f/u with urology and PCP. Obtained CBC, UA, & CMP, potassium 3.5, all other labs okay. Patient is followed by cardiology and PCP at [facility]. Discharged home. Follow up with PCP in 48-72 hours. Critical care attestation.: If time is entered above; I have spent that time in minutes in the direct care of this critically ill patient, excluding procedure time. ED Disposition Clinical Impression: Constipation by delayed colonic transit, Pelvic mass in male Disposition: - TO HOME OR SELFCARE Is pt being admited?: No Does the pt Need Aspirin: No Condition: Stable Instructions: Constipation (ED), High Fiber Diet (ED) Additional Instructions: Increase fluid intake daily. Take stool softener or Metamucil to sign painter helper in evacuation of stool. Follow up with [facility] in 24-72 hours. Referrals: [facility] ARTEAGAYFRE[facility] [Provider Group] - 3-5 Days [facility] [Outside] - 3-5 Days Time of Disposition: 14:27 Print Language: OCCITAN
== END 2017-09-07 14:36 | disposition home or self-care (01) ==
LOC: ED 10:58
DX: R19.00 Intra-abdominal and pelvic swelling, mass and lump, unspecified site (principal); K59.09 Other constipation; M19.90 Unspecified osteoarthritis, unspecified site; I11.0 Hypertensive heart disease with heart failure; I50.9 Heart failure, unspecified; I48.91 Unspecified atrial fibrillation
CPT/HCPCS: 36415; 74176; 80053; 81001; 83690; 85025; 99284

== ENCOUNTER 2017-10-10 17:47 | Emergency (ER) | payer MEDICAID ==
[2017-10-10] MEDS ORDERED: MOTRIN PO ONE (20:06)
--- NOTE | 2017-10-10 20:11 | Emergency Department Report ---
ED Lower Extremity HPI - General Chief Complaint: Extremity Injury, Lower Stated Complaint: RIGHT ANKLE PAIN Time Seen by Provider: 10/10/17 20:04 Source: patient Mode of arrival: Ambulatory Limitations: No Limitations - History of Present Illness Initial Comments: This 42-year-old male nontoxic, well nourished in appearance, no acute signs of distress presents to the ED with c/o of right ankle pain and swelling 1 day. Patient that he was in the kitchen and slipped and twisted his ankle. Patient denies any direct trauma to the area. Patient states he had difficulty walking but denies any redness or decreased range of motion. Patient denies any fever, chills, nausea, vomiting, headache, stiff neck numbness or tingling. Patient denies any head trauma. Denies any chest pain or shortness of breath. Patient denies any drug allergies or significant past medical history. MD Complaint: ankle injury -: This morning Injury: Ankle: Right Type of Injury: inversion Place: home Severity: mild Severity scale (0 -10): 8 Improves With: immobilization Worsens With: movement, palpation Associated Symptoms: swelling, able to partially bear weight, ambulatory. denies: snap/pop sensation, numbness, tingling, unable to bear weight - Related Data Home Medications Medication Instructions Recorded Confirmed Last Taken Tamsulosin [Flomax] 0.4 mg PO QHS 10/25/13 12/06/16 10/04/16 21:00 Losartan [Cozaar] 100 mg PO QDAY 01/19/14 12/06/16 10/04/16 20:00 NIFEdipine [NIFEdipine ER] 90 mg PO DAILY 06/08/14 12/06/16 10/04/16 08:00 Aspirin BABY CHEW TAB 325 mg PO QDAY 10/04/16 12/06/16 10/04/16 08:00 Hydrochlorothiazide [HCTZ] 50 mg PO QDAY 10/04/16 12/06/16 10/04/16 10:00 Carvedilol [Coreg] 6.25 mg PO BID 12/06/16 12/06/16 Unknown Flecainide [Tambocor] 100 mg PO Q12H 12/06/16 12/06/16 Unknown Pot Chloride/Deangelo Phos/Mag 1 each PO QDAY 12/06/16 12/06/16 Unknown [Medi-Lyte Tablet] Previous Rx's Medication Instructions Recorded Last Taken Type Dabigatran [Pradaxa] 150 mg PO BID #90 capsule 12/06/16 Unknown Rx Sulfamethoxazole/Trimethoprim 1 each PO BID #20 tablet 02/28/17 Unknown Rx [Bactrim DS TAB] Doxycycline [Vibramycin CAP] 100 mg PO Q12HR #20 capsule 03/14/17 Unknown Rx Amoxicillin 500 mg PO TID #30 capsule 04/05/17 Unknown Rx Naproxen [Naprosyn] 500 mg PO BID PRN #60 tablet 04/05/17 Unknown Rx Ibuprofen [Motrin] 600 mg PO Q8H PRN #30 tablet 10/10/17 Unknown Rx Allergies Allergy/AdvReac Type Severity Reaction Status Date / Time No Known Allergies Allergy Verified 09/07/17 11:00 ED Review of Systems ROS: Stated complaint: RIGHT ANKLE PAIN Other details as noted in HPI Constitutional: denies: chills, fever Eyes: denies: eye pain, eye discharge, vision change ENT: denies: ear pain, throat pain Respiratory: denies: cough, shortness of breath, wheezing Cardiovascular: denies: chest pain, palpitations Endocrine: no symptoms reported Gastrointestinal: denies: abdominal pain, nausea, diarrhea Genitourinary: denies: urgency, dysuria Musculoskeletal: arthralgia. denies: back pain, joint swelling Skin: denies: rash, lesions Neurological: denies: headache, weakness, paresthesias Psychiatric: denies: anxiety, depression Hematological/Lymphatic: denies: easy bleeding, easy bruising ED Past Medical Hx - Past Medical History Previous Medical History?: Yes Hx Hypertension: Yes Hx Congestive Heart Failure: Yes Hx Diabetes: No Hx Arthritis: Yes Hx Asthma: No Hx COPD: No Hx HIV: No Additional medical history: Enlarged prostate, atrial fibrillation, Obstructive sleep apnea, carl's angina. - Surgical History Past Surgical History?: No - Social History Smoking Status: Former Smoker - Medications Home Medications: Home Medications Medication Instructions Recorded Confirmed Last Taken Type Tamsulosin [Flomax] 0.4 mg PO QHS 10/25/13 12/06/16 10/04/16 21:00 History Losartan [Cozaar] 100 mg PO QDAY 01/19/14 12/06/16 10/04/16 20:00 History NIFEdipine [NIFEdipine ER] 90 mg PO DAILY 06/08/14 12/06/16 10/04/16 08:00 History Aspirin BABY CHEW TAB 325 mg PO QDAY 10/04/16 12/06/16 10/04/16 08:00 History Hydrochlorothiazide [HCTZ] 50 mg PO QDAY 10/04/16 12/06/16 10/04/16 10:00 History Carvedilol [Coreg] 6.25 mg PO BID 12/06/16 12/06/16 Unknown History Dabigatran [Pradaxa] 150 mg PO BID #90 capsule 12/06/16 Unknown Rx Flecainide [Tambocor] 100 mg PO Q12H 12/06/16 12/06/16 Unknown History Pot Chloride/Deangelo Phos/Mag 1 each PO QDAY 12/06/16 12/06/16 Unknown History [Medi-Lyte Tablet] Sulfamethoxazole/Trimethoprim 1 each PO BID #20 tablet 02/28/17 Unknown Rx [Bactrim DS TAB] Doxycycline [Vibramycin CAP] 100 mg PO Q12HR #20 capsule 03/14/17 Unknown Rx Amoxicillin 500 mg PO TID #30 capsule 04/05/17 Unknown Rx Naproxen [Naprosyn] 500 mg PO BID PRN #60 tablet 04/05/17 Unknown Rx Ibuprofen [Motrin] 600 mg PO Q8H PRN #30 tablet 10/10/17 Unknown Rx ED Physical Exam - General Limitations: No Limitations General appearance: alert, in no apparent distress - Head Head exam: Present: atraumatic, normocephalic - Eye Eye exam: Present: normal appearance Pupils: Present: normal accommodation - ENT ENT exam: Present: normal exam, mucous membranes moist - Neck Neck exam: Present: normal inspection, full ROM - Respiratory Respiratory exam: Present: normal lung sounds bilaterally. Absent: respiratory distress, wheezes, rales, rhonchi, stridor, chest wall tenderness, accessory muscle use, decreased breath sounds, prolonged expiratory - Cardiovascular Cardiovascular Exam: Present: regular rate, normal rhythm, normal heart sounds. Absent: bradycardia, tachycardia, irregular rhythm, systolic murmur, diastolic murmur, rubs, gallop - GI/Abdominal GI/Abdominal exam: Present: soft, normal bowel sounds - Rectal Rectal exam: Present: deferred - Extremities Exam Extremities exam: Present: normal inspection, full ROM, tenderness, normal capillary refill. Absent: pedal edema, joint swelling, calf tenderness - Expanded Lower Extremity Exam Right Hip exam: Present: normal inspection, full ROM Upper Leg exam: Present: normal inspection, full ROM Knee exam: Present: normal inspection, full ROM Lower Leg exam: Present: normal inspection, full ROM. Absent: tenderness, swelling, abrasion, Fuad's sign Ankle exam: Present: normal inspection, full ROM, tenderness, swelling. Absent : abrasion, laceration, ecchymosis, deformity, crepidus, dislocation, erythema, anterior draw sign Foot/Toe exam: Present: normal inspection, full ROM. Absent: tenderness, swelling, abrasion, laceration, ecchymosis, deformity, crepidus, dislocation, erythema, amputation, puncture wound, foreign body, calcaneal tenderness, tenderness at base of 5th metatarsal, nail avulsion, subungual hematoma Neuro vascular tendon exam: Present: no vascular compromise. Absent: pulse deficit, abnormal cap refill, motor deficit, sensory deficit, tendon deficit, extremity cold to touch, pallor, abnormal 2-point discrimination, decreased fine /light touch, foot drop, peroneal nerve deficit, significant pain with passive ROM of distal joint Gait: Positive: observed and limited by pain - Back Exam Back exam: Present: normal inspection, full ROM - Neurological Exam Neurological exam: Present: alert, oriented X3, normal gait - Psychiatric Psychiatric exam: Present: normal affect, normal mood - Skin Skin exam: Present: warm, dry, intact, normal color. Absent: rash ED Course Vital Signs 10/10/17 17:53 Temperature 100.1 F H Pulse Rate 72 Respiratory 18 Rate Blood Pressure 126/79 O2 Sat by Pulse 100 Oximetry - Reevaluation(s) Reevaluation #1: 10/10/17 20:09 Patient is speaking in full sentences with no signs of distress noted. ED Lower Extremity MDM - Medical Decision Making This is a 42-year-old male that presents with right ankle sprain. Patient is stable was examined by me. X-ray has been obtained and dictated by the radiologist with no fracture, dislocation. Patient did receive Motrin in the ED. Patient received ice as well. Patient was educated in Rice therapy. Patient received ankle stirrup and crutches and was educated by RN at a use crutches. Patient was referred to Follow-up with a orthopedic doctor in 3-5 days or if symptoms worsen and continue return to emergency room as soon as possible. At time of discharge, the patient does not seem toxic or ill in appearance. No acute signs of distress noted. Patient agrees to discharge treatment plan of care. No further questions noted by the patient. Critical care attestation.: If time is entered above; I have spent that time in minutes in the direct care of this critically ill patient, excluding procedure time. ED Disposition Clinical Impression: Right ankle sprain Qualifiers: Encounter type: initial encounter Involved ligament of ankle: unspecified ligament Qualified Code(s): S93.401A - Sprain of unspecified ligament of right ankle, initial encounter Disposition: TO HOME OR SELFCARE Is pt being admited?: No Does the pt Need Aspirin: No Condition: Stable Instructions: Ankle Sprain (ED), Ankle Stirrup Splint (ED), Crutch Instructions (ED), Ibuprofen (By mouth), RICE Therapy (ED) Additional Instructions: Follow-up with a orthopedic doctor in 3-5 days or if symptoms worsen and continue return to emergency room as soon as possible. Prescriptions: Ibuprofen [Motrin] 600 mg PO Q8H PRN #30 tablet PRN Reason: Pain Referrals: PRIMARY CARE, [Referring] - 3-5 Days FAHAD PARKER MD [Staff Physician] - 3-5 Days [facility] [Outside] - 3-5 Days [facility] [Outside] - 3-5 Days Forms: Work/School Release Form(ED)
--- NOTE | 2017-10-10 20:31 | XRay Report ---
FINAL REPORT PROCEDURE: XR ANKLE 3+V RT TECHNIQUE: Laterality ankle radiographs, AP, lateral, and oblique views. CPT 45039 HISTORY: right ankle PAIN COMPARISON: No prior studies are available for comparison. FINDINGS: Fracture (s) and/or Dislocation(s): None . Alignment: Normal . Joint space(s): Normal . Soft tissues: Normal . Bone mineralization: Normal . Foreign bodies: None . Calcaneal spurring: Small calcaneal spur seen at the Achilles tendon insertion site.. IMPRESSION: Small calcaneal spur otherwise negative exam. No acute abnormalities are identified..
[2017-10-10 22:53] VITALS: BP 128/82
== END 2017-10-10 21:14 | disposition home or self-care (01) ==
LOC: ED 17:47
DX: S93.401A Sprain of unspecified ligament of right ankle, initial encounter (principal); I11.0 Hypertensive heart disease with heart failure; I50.9 Heart failure, unspecified; M19.90 Unspecified osteoarthritis, unspecified site; Z87.891 Personal history of nicotine dependence; Z79.82 Long term (current) use of aspirin; X58.XXXA Exposure to other specified factors, initial encounter; Y93.89 Activity, other specified; Y92.000 Kitchen of unspecified non-institutional (private) residence as the place of occurrence of the external cause; Y99.8 Other external cause status
CPT/HCPCS: 99284

== ENCOUNTER 2017-12-07 04:15 | Emergency (ER) | payer MEDICAID ==
[2017-12-07 06:13] LABS: Basophils % (Auto) 0.6 % (0.0-1.8); Eosinophils # (Auto) 0.1 K/mm3 (0.0-0.4); Eosinophils % (Auto) 0.9 % (0.0-4.3); Hematocrit 40.2 % (35.5-45.6); Hemoglobin 13.8 gm/dl (11.8-15.2); Mean Corpuscular HGB Conc 34 % (32-34); Mean Corpuscular Hemoglobin 29 pg (28-32); Mean Corpuscular Volume 84 fl (84-94); Monocytes # (Auto) 0.8 K/mm3 (0.0-0.8); Monocytes % (Auto) 11.7 % (0.0-7.3); Platelet Count 299 K/mm3 (140-440); Red Blood Count 4.81 M/mm3 (3.65-5.03); Red Cell Distribution Width 12.6 % (13.2-15.2)
[2017-12-07 06:26] LABS: BUN/Creatinine Ratio 20; Blood Urea Nitrogen 12 mg/dL (9-20); Calcium 9.2 mg/dL (8.4-10.2); Hemolysis Index 8
--- NOTE | 2017-12-07 07:50 | Emergency Department Report ---
ED Shortness of Breath HPI - General Chief Complaint: Dyspnea/Respdistress Stated Complaint: SHORTNESS OF BREATH Time Seen by Provider: 12/07/17 07:40 Source: patient Mode of arrival: Ambulatory Limitations: No Limitations - History of Present Illness Initial Comments: Patient is 42 years old male history of hypertension and cardiomegaly mostly, paroxysmal A. fib. Patient presented to the ER complaining of brief episode of shortness of breath and palpitation that completely resolved by the time he get here. Patient stated that he had ablation by Dr. Rogers 2 weeks ago. Patient denied any fever or cough recently. MD Complaint: shortness of breath - Related Data Home Medications Medication Instructions Recorded Confirmed Last Taken Tamsulosin [Flomax] 0.4 mg PO QHS 10/25/13 12/06/16 10/04/16 21:00 Losartan [Cozaar] 100 mg PO QDAY 01/19/14 12/06/16 10/04/16 20:00 NIFEdipine [NIFEdipine ER] 90 mg PO DAILY 06/08/14 12/06/16 10/04/16 08:00 Aspirin BABY CHEW TAB 325 mg PO QDAY 10/04/16 12/06/16 10/04/16 08:00 Hydrochlorothiazide [HCTZ] 50 mg PO QDAY 10/04/16 12/06/16 10/04/16 10:00 Carvedilol [Coreg] 6.25 mg PO BID 12/06/16 12/06/16 Unknown Flecainide [Tambocor] 100 mg PO Q12H 12/06/16 12/06/16 Unknown Pot Chloride/Deangelo Phos/Mag 1 each PO QDAY 12/06/16 12/06/16 Unknown [Medi-Lyte Tablet] Previous Rx's Medication Instructions Recorded Last Taken Type Dabigatran [Pradaxa] 150 mg PO BID #90 capsule 12/06/16 Unknown Rx Sulfamethoxazole/Trimethoprim 1 each PO BID #20 tablet 02/28/17 Unknown Rx [Bactrim DS TAB] Doxycycline [Vibramycin CAP] 100 mg PO Q12HR #20 capsule 03/14/17 Unknown Rx Amoxicillin 500 mg PO TID #30 capsule 04/05/17 Unknown Rx Naproxen [Naprosyn] 500 mg PO BID PRN #60 tablet 04/05/17 Unknown Rx Ibuprofen [Motrin] 600 mg PO Q8H PRN #30 tablet 10/10/17 Unknown Rx Allergies Allergy/AdvReac Type Severity Reaction Status Date / Time No Known Allergies Allergy Verified 09/07/17 11:00 ED Review of Systems ROS: Stated complaint: SHORTNESS OF BREATH Other details as noted in HPI Comment: All other systems reviewed and negative Constitutional: denies: chills, fever Respiratory: shortness of breath. denies: cough, orthopnea, SOB with exertion, SOB at rest, wheezing Cardiovascular: chest pain (resolved), palpitations (resolved). denies: dyspnea on exertion, orthopnea Gastrointestinal: denies: abdominal pain, nausea, vomiting, diarrhea, constipation, hematemesis, hematochezia Genitourinary: denies: urgency Neurological: denies: headache, weakness Psychiatric: denies: depression ED Past Medical Hx - Past Medical History Previous Medical History?: Yes Hx Hypertension: Yes Hx Congestive Heart Failure: Yes Hx Diabetes: No Hx Arthritis: Yes (rheumatoid) Hx Asthma: No Hx COPD: No Hx HIV: No Additional medical history: Enlarged prostate, atrial fibrillation, Obstructive sleep apnea, carl's angina. - Surgical History Past Surgical History?: No - Social History Smoking Status: Never Smoker Substance Use Type: None - Medications Home Medications: Home Medications Medication Instructions Recorded Confirmed Last Taken Type Tamsulosin [Flomax] 0.4 mg PO QHS 10/25/13 12/06/16 10/04/16 21:00 History Losartan [Cozaar] 100 mg PO QDAY 01/19/14 12/06/16 10/04/16 20:00 History NIFEdipine [NIFEdipine ER] 90 mg PO DAILY 06/08/14 12/06/16 10/04/16 08:00 History Aspirin BABY CHEW TAB 325 mg PO QDAY 10/04/16 12/06/16 10/04/16 08:00 History Hydrochlorothiazide [HCTZ] 50 mg PO QDAY 10/04/16 12/06/16 10/04/16 10:00 History Carvedilol [Coreg] 6.25 mg PO BID 12/06/16 12/06/16 Unknown History Dabigatran [Pradaxa] 150 mg PO BID #90 capsule 12/06/16 Unknown Rx Flecainide [Tambocor] 100 mg PO Q12H 12/06/16 12/06/16 Unknown History Pot Chloride/Deangelo Phos/Mag 1 each PO QDAY 12/06/16 12/06/16 Unknown History [Medi-Lyte Tablet] Sulfamethoxazole/Trimethoprim 1 each PO BID #20 tablet 02/28/17 Unknown Rx [Bactrim DS TAB] Doxycycline [Vibramycin CAP] 100 mg PO Q12HR #20 capsule 03/14/17 Unknown Rx Amoxicillin 500 mg PO TID #30 capsule 04/05/17 Unknown Rx Naproxen [Naprosyn] 500 mg PO BID PRN #60 tablet 04/05/17 Unknown Rx Ibuprofen [Motrin] 600 mg PO Q8H PRN #30 tablet 10/10/17 Unknown Rx ED Physical Exam - General Limitations: No Limitations General appearance: alert, in no apparent distress - Head Head exam: Present: atraumatic, normocephalic, normal inspection - ENT ENT exam: Present: normal exam, normal orophraynx, mucous membranes moist, TM's normal bilaterally - Neck Neck exam: Present: normal inspection, full ROM. Absent: tenderness, meningismus, lymphadenopathy, thyromegaly - Respiratory Respiratory exam: Present: normal lung sounds bilaterally. Absent: respiratory distress, wheezes, rales, rhonchi, stridor, accessory muscle use, decreased breath sounds, prolonged expiratory - Cardiovascular Cardiovascular Exam: Present: regular rate, normal rhythm, normal heart sounds - GI/Abdominal GI/Abdominal exam: Present: soft, normal bowel sounds. Absent: distended, tenderness, guarding, rebound, rigid, organomegaly, mass, bruit, pulsatile mass , hernia - Extremities Exam Extremities exam: Present: normal inspection, full ROM, normal capillary refill - Back Exam Back exam: Present: normal inspection, full ROM. Absent: tenderness, CVA tenderness (R), CVA tenderness (L), muscle spasm, paraspinal tenderness, vertebral tenderness, rash noted - Neurological Exam Neurological exam: Present: alert, oriented X3, CN II-XII intact, normal gait, reflexes normal - Skin Skin exam: Present: warm, intact, normal color ED Course Vital Signs 12/07/17 12/07/17 04:35 06:50 Temperature 98.3 F 97.9 F Pulse Rate 54 L 62 Respiratory 18 17 Rate Blood Pressure 125/77 Blood Pressure 129/84 [Left] O2 Sat by Pulse 97 98 Oximetry - Reevaluation(s) Reevaluation #1: 12/07/17 09:31 Patient stated that his symptoms completely resolved. Patient observed in the ER no evidence of atrial fibrillation on the monitor. Patient will be discharged to follow-up with Dr. Rogers in the next 2-3 days. ED Medical Decision Making - Lab Data Result diagrams: 12/07/17 05:44 12/07/17 05:44 Critical care attestation.: If time is entered above; I have spent that time in minutes in the direct care of this critically ill patient, excluding procedure time. ED Disposition Clinical Impression: Heart failure, Paroxysmal atrial fibrillation Disposition: - TO HOME OR SELFCARE Is pt being admited?: No Condition: Stable Instructions: Heart Failure (ED), Palpitations (ED) Referrals: PRIMARY CARE, [Primary Care Provider] - 3-5 Days
[2017-12-07 09:44] VITALS: BP 143/79
--- NOTE | 2017-12-09 14:26 | XRay Report ---
FINAL REPORT EXAM: XR CHEST ROUTINE 2V HISTORY: Shortness of breath. TECHNIQUE: Frontal and lateral radiographs of the chest were obtained. Comparison is made with prior study 09/22/2015. FINDINGS: The cardiac silhouette and mediastinum are within normal limits. The lungs are clear bilaterally, without focal infiltrate or effusion. There is no pneumothorax. No significant osseous abnormalities are identified. External metallic artifacts overlie the left anterior neck. IMPRESSION: No active disease seen in the chest.
== END 2017-12-07 09:46 | disposition home or self-care (01) ==
LOC: ED 04:15
DX: I48.0 Paroxysmal atrial fibrillation (principal); I50.9 Heart failure, unspecified; I10 Essential (primary) hypertension
CPT/HCPCS: 36415; 71046; 80048; 83880; 85025; 85379; 93005; 93010

== ENCOUNTER 2018-12-03 11:49 | Emergency (ER) | payer OTHER ==
--- NOTE | 2018-12-03 11:52 | Emergency Department Report ---
Blank Doc - Documentation Documentation: This is a 43-year-old male that presents with dysuria, frequency, and urgency. Stated has frequent UTIs from medications that he is taking. This initial assessment/diagnostic orders/clinical plan/treatment(s) is/are subject to change based on patient's health status, clinical progression and re- assessment by fellow clinical providers in the ED. Further treatment and workup at subsequent clinical providers discretion. Patient/guardians urged not to elope from the ED as their condition may be serious if not clinically assessed and managed. Initial orders include: 1- Patient sent to [facility] for further evaluation and treatment 2- UA
[2018-12-03 11:53] VITALS: BP 134/93
--- NOTE | 2018-12-03 13:44 | Emergency Department Report ---
ED Dysuria HPI - HPI Chief Complaint: Urogenital-Male Stated Complaint: UTI Time Seen by Provider: 12/03/18 11:51 Duration: 3 Days Location of Discomfort: Suprapubic Severity: Mild Symptoms: Dysuria: Yes, Frequency: Yes, Suprapubic Pain: No, Flank Pain: No, Fever: No, Hematuria: No, Abdominal Pain: No, Previous UTI's: Yes Other History: Patient is a pleasant 43-year-old male who has acute on chronic urinary dysuria/frequency due to prostate issues. He follows with urology. He has no fever. He presents to the emergency room complaining of his usual dysuria and frequency. Patient has no discharge. He is not concerned for STI. In reviewing the EMR he has been on numerous antibiotics in the past for urinary symptoms including Bactrim, Doxy, and amoxicillin. ED Review of Systems ROS: Stated complaint: UTI Other details as noted in HPI Comment: All other systems reviewed and negative ED Past Medical Hx - Past Medical History Previous Medical History?: Yes Hx Hypertension: Yes Hx Congestive Heart Failure: Yes Hx Diabetes: No Hx Arthritis: Yes (rheumatoid) Hx Asthma: No Hx COPD: No Hx HIV: No Additional medical history: Enlarged prostate, atrial fibrillation, Obstructive sleep apnea, carl's angina. - Surgical History Past Surgical History?: Yes Additional Surgical History: Ablation - Family History Family history: no significant - Social History Smoking Status: Never Smoker Substance Use Type: None - Medications Home Medications: Home Medications Medication Instructions Recorded Confirmed Last Taken Type Tamsulosin [Flomax] 0.4 mg PO QHS 10/25/13 12/06/16 10/04/16 21:00 History Losartan [Cozaar] 100 mg PO QDAY 01/19/14 12/06/16 10/04/16 20:00 History NIFEdipine [NIFEdipine ER] 90 mg PO DAILY 06/08/14 12/06/16 10/04/16 08:00 History Aspirin BABY CHEW TAB 325 mg PO QDAY 10/04/16 12/06/16 10/04/16 08:00 History hydroCHLOROthiazide [HCTZ] 50 mg PO QDAY 10/04/16 12/06/16 10/04/16 10:00 History Carvedilol [Coreg] 6.25 mg PO BID 12/06/16 12/06/16 Unknown History Dabigatran [Pradaxa] 150 mg PO BID #90 capsule 12/06/16 Unknown Rx Flecainide [Tambocor] 100 mg PO Q12H 12/06/16 12/06/16 Unknown History Pot Chloride/Deangelo Phos/Mag 1 each PO QDAY 12/06/16 12/06/16 Unknown History [Medi-Lyte Tablet] DOXYCYCLINE Hyclate [Vibramycin 100 mg PO BID 10 Days #20 capsule 12/03/18 Unknown Rx CAP] Dysuria Exam - Exam General: Vital signs noted. No distress. Alert and acting appropriately. Exam: Yes Moist Mucous Membranes, No CVA Tenderness, No Abdominal Tenderness, No Rigidity or Guarding Exam: - ENT. ENT exam: Present: normal exam, normal orophraynx, mucous membranes moist, normal external ear exam, no lymphadenopathy. - Neck. Neck exam: Present: normal inspection, full ROM. Absent: tenderness, meningismus. - Respiratory. Respiratory exam: Present: normal lung sounds bilaterally. Absent: respiratory distress, wheezes, rales, rhonchi, stridor, chest wall tenderness, accessory muscle use, decreased breath sounds, prolonged expiratory. - Cardiovascular. Cardiovascular Exam: Present: regular rate, normal rhythm, normal heart sounds. Absent: bradycardia, tachycardia, irregular rhythm, systolic murmur, diastolic murmur, rubs, gallop, JVD, edema. - GI/Abdominal. GI/Abdominal exam: Present: soft, non tender on light and deep palpation. Absent: distended, tenderness, guarding, rebound, rigid, pulsatile mass. - Rectal. Rectal exam: Present: deferred. - Extremities Exam. Extremities exam: Present: normal inspection, full ROM, other (2+ pulses noted in the bilateral upper extremities. Bilateral lower extremities with 2+ DP bilateral. Full ROM. Absent: calf tenderness. - Back Exam. Back exam: Present: normal inspection, full ROM. Absent: tenderness, CVA tenderness (R), CVA tenderness (L), paraspinal tenderness, vertebral tenderness. - Neurological Exam. Neurological exam: Present: alert, oriented X3, normal gait, other (Extraocular movements intact. Tongue midline. No facial droop. Facial sensation intact to light touch in the V1, V2, V3 distribution bilaterally. 5 and 5 strength in 4 extremities.. Sensation is intact to light touch in 4 extremities.). Absent: motor sensory deficit. - Psychiatric. Psychiatric exam: normal affect and mood. - Skin. Skin exam: Present: warm, dry, intact, normal color. Absent: rash ED Course Vital Signs 12/03/18 11:51 Temperature 97.8 F Pulse Rate 72 Respiratory 18 Rate Blood Pressure 134/93 O2 Sat by Pulse 99 Oximetry ED Medical Decision Making - Medical Decision Making Lab Results 12/03/18 Range/Units Unknown Urine Color Yellow (Yellow) Urine Turbidity Slightly-cloudy (Clear) Urine pH 7.0 (5.0-7.0) Ur Specific South Range 1.015 (1.003-1.030) Urine Protein <15 mg/dl (Negative) mg/dL Urine Glucose (UA) Neg (Negative) mg/dL Urine Ketones Neg (Negative) mg/dL Urine Blood Neg (Negative) Urine Nitrite Neg (Negative) Urine Bilirubin Neg (Negative) Urine Urobilinogen < 2.0 (<2.0) mg/dL Ur Leukocyte Esterase Neg (Negative) Urine WBC (Auto) < 1.0 (0.0-6.0) /HPF Urine RBC (Auto) 3.0 (0.0-6.0) /HPF U Epithel Cells (Auto) < 1.0 (0-13.0) /HPF Urine Mucus Few /HPF Vital Signs 12/03/18 11:51 Temperature 97.8 F Pulse Rate 72 Respiratory 18 Rate Blood Pressure 134/93 O2 Sat by Pulse 99 Oximetry Pt discharge to home on Doxy. I've instructed patient to have his urologist called the hospital follow up on the urine culture so that he can be sure that he is on the correct antibiotics. Patient DC'd home with stable vital signs fever and in no pain. Critical care attestation.: If time is entered above; I have spent that time in minutes in the direct care of this critically ill patient, excluding procedure time. ED Disposition Clinical Impression: Dysuria Disposition: DC-01 TO HOME OR SELFCARE Is pt being admited?: No Does the pt Need Aspirin: No Condition: Stable Instructions: Urinary Tract Infection in Men (ED) Additional Instructions: DIET TOLERATED MEDS ORDERED TODAY IN ER FOLLOW UP PCP WITHIN 48 HOURS TO ENSURE YOU ARE GETTING BETTER REFERRALS HAVE BEEN GIVEN BELOW ACTIVITY TOLERATED MOTRIN OR TYLENOL FOR PAIN OR FEVER RETURN TO THE ER FOR WORSENING SYMPTOMS . WE HAVE STARTED YOUR ANTIBIOTICS AND SENT A URINE CULTURE PLEASE CALL YOUR UROLOGIST AND LET HIM KNOW OF YOUR SYMPTOMS AND HE CAN FOLLOW UP ON THE CULTURE RESULTS WHICH WILL BE NEEDED TO ADDRESS YOUR ANTIBIOTICS. Prescriptions: DOXYCYCLINE Hyclate [Vibramycin CAP] 100 mg PO BID 10 Days #20 capsule Referrals: IRENE MCDONALD MD [Primary Care Provider] - 3-5 Days Time of Disposition: 14:04
[2018-12-03 14:01] LABS: Bilirubin,Urine NEG (Negative); Blood,Urine NEG (Negative); Color,Urine Yellow (Yellow); Mucus,Urine FEW /HPF; Protein,Urine <15 mg/dL mg/dL (Negative); Urobilinogen,Urine < 2.0 mg/dL (<2.0); WBC,Urine < 1.0 /HPF (0.0-6.0)
== END 2018-12-03 14:20 | disposition home or self-care (01) ==
LOC: ED 11:49
DX: R30.0 Dysuria (principal); R35.0 Frequency of micturition; I11.0 Hypertensive heart disease with heart failure; I50.9 Heart failure, unspecified; M06.9 Rheumatoid arthritis, unspecified
CPT/HCPCS: 81001; 82962; 87086

== ENCOUNTER 2019-01-20 15:44 | Emergency (ER) | payer SELFPAY ==
--- NOTE | 2019-01-20 15:58 | Event Note ---
ED Screening Note ED Screening Note: WEAK NAUSEA PMH HTN HPLD FAM HX CAD NO CIG/ ETOH/DRUGS BS 100 VIA EMS VSS This initial assessment/diagnostic orders/clinical plan/treatment(s) is/are subject to change based on patients health status, clinical progression and re- assessment by fellow clinical providers in the ED. Further treatment and workup at subsequent clinical providers discretion. Patient/guardian urged not to elope from the ED as their condition may be serious if not clinically assessed and managed. Initial orders include: EKG LABS UA
[2019-01-20 17:47] LABS: Hematocrit 40.1 % (35.5-45.6); Hemoglobin 13.2 gm/dl (11.8-15.2); Mean Corpuscular HGB Conc 33 % (32-34); Mean Corpuscular Volume 84 fl (84-94); Platelet Count 250 K/mm3 (140-440); Red Blood Count 4.77 M/mm3 (3.65-5.03); Red Cell Distribution Width 14.2 % (13.2-15.2)
[2019-01-20 18:16] LABS: Bilirubin,Urine NEG (Negative); Blood,Urine NEG (Negative); Mucus,Urine 3+ /HPF; Urobilinogen,Urine < 2.0 mg/dL (<2.0)
[2019-01-20 18:18] LABS: Color,Urine Dark Yellow (Yellow)
[2019-01-20 18:22] LABS: Alanine Aminotransferase 14 units/L (7-56); Albumin 4.4 g/dL (3.9-5); BUN/Creatinine Ratio 20; Blood Urea Nitrogen 24 mg/dL (9-20); Hemolysis Index 11
[2019-01-20 18:52] LABS: Bilirubin,Direct < 0.2 mg/dL (0-0.2)
--- NOTE | 2019-01-20 18:59 | XRay Report ---
ABDOMEN SUPINE INDICATION / CLINICAL INFORMATION: ABD PAIN. COMPARISON: None available. FINDINGS: Bowel gas pattern is unremarkable, not indicative of obstruction. No obvious abnormal mass or calcifi cation. Signer Name: Dharmesh Ochoa MD Signed: 01/20/2019 6:55 PM Workstation Name: [id number]
[2019-01-20] MEDS ORDERED: NACL 0.9% 1000 ML 1,000 ML IV ONE (20:15)
[2019-01-20] MEDS ORDERED: BENTYL IM ONE (20:15)
[2019-01-20] MEDS ORDERED: PEPCID IV ONE (20:15)
--- NOTE | 2019-01-20 21:00 | Emergency Department Report ---
ED N/V/D HPI - General Chief complaint: Nausea/Vomiting/Diarrhea Stated complaint: VOMITING/DIARRHEA/CRAMPS Time Seen by Provider: 01/20/19 15:56 Source: patient Mode of arrival: Ambulatory Limitations: No Limitations - History of Present Illness Initial comments: 3 days of what he believes is food poisoning. Patient states the day before symptoms started he ate at a restaurant. Next morning he was having nausea vomiting diarrhea. Nausea is somewhat controlled now however he still has abdominal cramps and diarrhea. Patient has some mild weakness with standing. Patient denies any fevers chills or abdominal pain with palpation at this time. Patient states diarrhea is watery and nonbloody Quality: cramping Consistency: colicky Context: possible food poisoning Associated Symptoms: nausea/vomiting. denies: chest pain, cough, diaphoresis, fever/chills, headaches, loss of appetite, malaise, rash, shortness of breath, syncope - Related Data Home Medications Medication Instructions Recorded Confirmed Last Taken Tamsulosin [Flomax] 0.4 mg PO QHS 10/25/13 12/06/16 10/04/16 21:00 Losartan [Cozaar] 100 mg PO QDAY 01/19/14 12/06/16 10/04/16 20:00 NIFEdipine [NIFEdipine ER] 90 mg PO DAILY 06/08/14 12/06/16 10/04/16 08:00 Aspirin BABY CHEW TAB 325 mg PO QDAY 10/04/16 12/06/16 10/04/16 08:00 hydroCHLOROthiazide [HCTZ] 50 mg PO QDAY 10/04/16 12/06/16 10/04/16 10:00 Carvedilol [Coreg] 6.25 mg PO BID 12/06/16 12/06/16 Unknown Flecainide [Tambocor] 100 mg PO Q12H 12/06/16 12/06/16 Unknown Pot Chloride/Deangelo Phos/Mag 1 each PO QDAY 12/06/16 12/06/16 Unknown [Medi-Lyte Tablet] Previous Rx's Medication Instructions Recorded Last Taken Type Dabigatran [Pradaxa] 150 mg PO BID #90 capsule 12/06/16 Unknown Rx DOXYCYCLINE Hyclate [Vibramycin 100 mg PO BID 10 Days #20 capsule 12/03/18 Unknown Rx CAP] Dicyclomine [Bentyl] 20 mg PO QID #10 tablet 01/20/19 Unknown Rx Diphenoxylate/Atropine [Lomotil] 1 tab PO Q4H PRN #6 tablet 01/20/19 Unknown Rx Allergies Allergy/AdvReac Type Severity Reaction Status Date / Time No Known Allergies Allergy Verified 01/20/19 15:47 ED Review of Systems ROS: Stated complaint: VOMITING/DIARRHEA/CRAMPS Other details as noted in HPI Comment: All other systems reviewed and negative ED Past Medical Hx - Past Medical History Hx Hypertension: Yes Hx Congestive Heart Failure: Yes Hx Diabetes: No Hx Arthritis: Yes (rheumatoid) Hx Asthma: No Hx COPD: No Hx HIV: No Additional medical history: Enlarged prostate, atrial fibrillation, Obstructive sleep apnea, carl's angina. - Surgical History Additional Surgical History: Ablation - Social History Smoking Status: Never Smoker Substance Use Type: None - Medications Home Medications: Home Medications Medication Instructions Recorded Confirmed Last Taken Type Tamsulosin [Flomax] 0.4 mg PO QHS 10/25/13 12/06/16 10/04/16 21:00 History Losartan [Cozaar] 100 mg PO QDAY 01/19/14 12/06/16 10/04/16 20:00 History NIFEdipine [NIFEdipine ER] 90 mg PO DAILY 06/08/14 12/06/16 10/04/16 08:00 History Aspirin BABY CHEW TAB 325 mg PO QDAY 10/04/16 12/06/16 10/04/16 08:00 History hydroCHLOROthiazide [HCTZ] 50 mg PO QDAY 10/04/16 12/06/16 10/04/16 10:00 History Carvedilol [Coreg] 6.25 mg PO BID 12/06/16 12/06/16 Unknown History Dabigatran [Pradaxa] 150 mg PO BID #90 capsule 12/06/16 Unknown Rx Flecainide [Tambocor] 100 mg PO Q12H 12/06/16 12/06/16 Unknown History Pot Chloride/Deangelo Phos/Mag 1 each PO QDAY 12/06/16 12/06/16 Unknown History [Medi-Lyte Tablet] DOXYCYCLINE Hyclate [Vibramycin 100 mg PO BID 10 Days #20 capsule 12/03/18 Unknown Rx CAP] Dicyclomine [Bentyl] 20 mg PO QID #10 tablet 01/20/19 Unknown Rx Diphenoxylate/Atropine [Lomotil] 1 tab PO Q4H PRN #6 tablet 01/20/19 Unknown Rx ED Physical Exam - General Limitations: No Limitations General appearance: alert, in no apparent distress - Head Head exam: Present: atraumatic, normocephalic - Eye Eye exam: Present: normal appearance. Absent: PERRL, EOMI - ENT ENT exam: Present: mucous membranes moist. Absent: normal exam - Neck Neck exam: Present: normal inspection - Respiratory Respiratory exam: Present: normal lung sounds bilaterally. Absent: respiratory distress, wheezes, rales, rhonchi - Cardiovascular Cardiovascular Exam: Present: regular rate, normal rhythm. Absent: systolic murmur, diastolic murmur, rubs, gallop - GI/Abdominal GI/Abdominal exam: Present: soft, normal bowel sounds. Absent: distended, tenderness, guarding, rebound - Rectal Rectal exam: Present: deferred - Extremities Exam Extremities exam: Present: normal inspection - Back Exam Back exam: Present: normal inspection - Neurological Exam Neurological exam: Present: alert, oriented X3 - Psychiatric Psychiatric exam: Present: normal affect, normal mood - Skin Skin exam: Present: warm, dry, intact, normal color. Absent: rash ED Course Vital Signs 01/20/19 01/20/19 01/20/19 17:26 19:53 19:54 Temperature 98.5 F 98.2 F Pulse Rate 83 83 Respiratory 16 18 18 Rate Blood Pressure 120/73 Blood Pressure 120/77 [Right] O2 Sat by Pulse 98 98 98 Oximetry ED Medical Decision Making - Lab Data Result diagrams: 01/20/19 17:29 01/20/19 17:29 - Medical Decision Making Patient hydrated and given Bentyl for her symptomatically. Patient be discharged home. Critical care attestation.: If time is entered above; I have spent that time in minutes in the direct care of this critically ill patient, excluding procedure time. ED Disposition Clinical Impression: Gastroenteritis Disposition: -01 TO HOME OR SELFCARE Is pt being admited?: No Does the pt Need Aspirin: No Condition: Stable Instructions: Food Poisoning (ED) Referrals: IRENE MCDONALD MD [Primary Care Provider] - 3-5 Days Time of Disposition: 21:02
[2019-01-20 21:20] VITALS: BP 153/95
== END 2019-01-20 22:52 | disposition home or self-care (01) ==
LOC: ED 15:44
DX: K52.9 Noninfective gastroenteritis and colitis, unspecified (principal); I11.0 Hypertensive heart disease with heart failure; M06.9 Rheumatoid arthritis, unspecified
CPT/HCPCS: 36415; 74018; 80053; 80076; 81001; 83690; 85027; 96361; 96372; 96374; 99284; J0500; J7030

== ENCOUNTER 2019-05-24 21:51 | Emergency (ER) | payer MEDICARE ==
--- NOTE | 2019-05-24 22:09 | Emergency Department Report ---
Blank Doc - Documentation Documentation: 43-year-old male that presents with muscle cramps and heart palpations. This initial assessment/diagnostic orders/clinical plan/treatment(s) is/are subject to change based on patient's health status, clinical progression and re- assessment by fellow clinical providers in the ED. Further treatment and workup at subsequent clinical providers discretion. Patient/guardians urged not to elope from the ED as their condition may be serious if not clinically assessed and managed. Initial orders include: 1- Patient sent to MAIN ED for further evaluation and treatment 2- labs 3- EKG 4- CXR
--- NOTE | 2019-05-24 22:31 | XRay Report ---
CHEST 2 VIEWS INDICATION / CLINICAL INFORMATION: Chest Pain. COMPARISON: Chest x-ray on 06/09/2018. FINDINGS: SUPPORT DEVICES: None. HEART / MEDIASTINUM: No significant abnormality. LUNGS / PLEURA: No significant pulmonary or pleural abnormality. No pneumothorax. ADDITIONAL FINDINGS: No significant additional findings. IMPRESSION: 1. No acute findings. Signer Name: Steven Li MD Signed: 05/24/2019 10:26 PM Workstation Name: [id number]
[2019-05-24 23:05] LABS: Basophils % (Auto) 0.5 % (0.0-1.8); Eosinophils # (Auto) 0.1 K/mm3 (0.0-0.4); Eosinophils % (Auto) 1.3 % (0.0-4.3); Hematocrit 38.5 % (35.5-45.6); Hemoglobin 12.9 gm/dl (11.8-15.2); Lymphocytes # (Auto) 2.5 K/mm3 (1.2-5.4); Lymphocytes % (Auto) 42.6 % (13.4-35.0); Mean Corpuscular HGB Conc 34 % (32-34); Mean Corpuscular Volume 86 fl (84-94); Monocytes # (Auto) 0.9 K/mm3 (0.0-0.8); Platelet Count 243 K/mm3 (140-440); Red Blood Count 4.48 M/mm3 (3.65-5.03); Red Cell Distribution Width 12.5 % (13.2-15.2)
[2019-05-24 23:13] LABS: INR 1.02 (0.87-1.13); Partial Thromboplastin Time 27.7 Sec. (24.2-36.6)
[2019-05-24 23:22] LABS: Alanine Aminotransferase 14 units/L (7-56); Albumin 4.3 g/dL (3.9-5); BUN/Creatinine Ratio 11; Blood Urea Nitrogen 10 mg/dL (9-20); Calcium 9.5 mg/dL (8.4-10.2); Hemolysis Index 4
--- NOTE | 2019-05-25 01:57 | Emergency Department Report ---
ED Palpitations HPI - General Chief Complaint: Arrhythmia/Palpitations Stated Complaint: MUSCLE SORENESS/PALPITATIONS Time Seen by Provider: 05/24/19 22:08 Source: patient Mode of arrival: Ambulatory Limitations: No Limitations - History of Present Illness Initial Comments: 43-year-old male, history of atrial fibrillation, CAD, CHF, presents to ED with complaint of intermittent palpitations since yesterday. Patient is concerned his potassium levels may be abnormal. He denies any chest pain or shortness of breath. Reports associated muscle aches all over. MD Complaint: palpitations -: days(s) (1) Context: occured during rest Arrythmia History: atrial fibrillation Associated Symptoms: muscle cramps. denies: chest pain, shortness of breath, syncope, nausea/vomiting, diaphoresis - Related Data Home Medications Medication Instructions Recorded Confirmed Last Taken Tamsulosin [Flomax] 0.4 mg PO QHS 10/25/13 05/25/19 05/25/19 Losartan [Cozaar] 100 mg PO QDAY 01/19/14 05/25/19 05/25/19 NIFEdipine [NIFEdipine ER] 90 mg PO DAILY 06/08/14 05/25/19 05/25/19 hydroCHLOROthiazide [HCTZ] 50 mg PO QDAY 10/04/16 05/25/19 05/25/19 Pot Chloride/Deangelo Phos/Mag 1 each PO QDAY 12/06/16 05/25/19 05/25/19 [Medi-Lyte Tablet] carvediloL [Coreg] 6.25 mg PO BID 12/06/16 05/25/19 05/25/19 Previous Rx's Medication Instructions Recorded Last Taken Type Dabigatran [Pradaxa] 150 mg PO BID #90 capsule 12/06/16 05/25/19 Rx Allergies Allergy/AdvReac Type Severity Reaction Status Date / Time No Known Allergies Allergy Verified 01/20/19 15:47 ED Review of Systems ROS: Stated complaint: MUSCLE SORENESS/PALPITATIONS Other details as noted in HPI Comment: All other systems reviewed and negative Constitutional: denies: chills, fever Respiratory: denies: shortness of breath Cardiovascular: palpitations. denies: chest pain Gastrointestinal: denies: nausea, vomiting Musculoskeletal: myalgia ED Past Medical Hx - Past Medical History Previous Medical History?: Yes Hx Hypertension: Yes Hx Congestive Heart Failure: Yes Hx Diabetes: No Hx Arthritis: Yes (rheumatoid) Hx Asthma: No Hx COPD: No Hx HIV: No Additional medical history: Enlarged prostate, atrial fibrillation, Obstructive sleep apnea, carl's angina. Hypokalemia. - Surgical History Past Surgical History?: Yes Additional Surgical History: Ablation - Social History Smoking Status: Former Smoker Substance Use Type: None - Medications Home Medications: Home Medications Medication Instructions Recorded Confirmed Last Taken Type Tamsulosin [Flomax] 0.4 mg PO QHS 10/25/13 05/25/19 05/25/19 History Losartan [Cozaar] 100 mg PO QDAY 01/19/14 05/25/19 05/25/19 History NIFEdipine [NIFEdipine ER] 90 mg PO DAILY 06/08/14 05/25/19 05/25/19 History hydroCHLOROthiazide [HCTZ] 50 mg PO QDAY 10/04/16 05/25/19 05/25/19 History Dabigatran [Pradaxa] 150 mg PO BID #90 capsule 12/06/16 05/25/19 05/25/19 Rx Pot Chloride/Deangelo Phos/Mag 1 each PO QDAY 12/06/16 05/25/19 05/25/19 History [Medi-Lyte Tablet] carvediloL [Coreg] 6.25 mg PO BID 12/06/16 05/25/19 05/25/19 History ED Physical Exam - General Limitations: No Limitations General appearance: alert, in no apparent distress - Head Head exam: Present: atraumatic, normocephalic - Eye Eye exam: Present: normal appearance, EOMI - ENT ENT exam: Present: mucous membranes moist - Neck Neck exam: Present: normal inspection - Respiratory Respiratory exam: Present: normal lung sounds bilaterally. Absent: respiratory distress - Cardiovascular Cardiovascular Exam: Present: regular rate, normal rhythm - GI/Abdominal GI/Abdominal exam: Present: soft. Absent: distended, tenderness - Extremities Exam Extremities exam: Present: normal inspection. Absent: tenderness, calf tenderness - Neurological Exam Neurological exam: Present: alert, oriented X3 - Psychiatric Psychiatric exam: Present: normal affect, normal mood - Skin Skin exam: Present: warm, dry, intact, normal color ED Course Vital Signs 05/24/19 05/25/19 21:55 02:06 Temperature 98.2 F 98.2 F Pulse Rate 67 61 Respiratory 18 18 Rate Blood Pressure 145/89 Blood Pressure 127/87 [Left] O2 Sat by Pulse 97 95 Oximetry ED Medical Decision Making - Lab Data Result diagrams: 05/24/19 22:35 05/24/19 22:35 - EKG Data -: EKG Interpreted by Me EKG shows normal: sinus rhythm, axis, intervals, QRS complexes, ST-T waves Rate: bradycardia (rate 58) - EKG Data When compared to previous EKG there are: no significant change (compared to 06/2018) Interpretation: no acute changes - Radiology Data Radiology results: report reviewed, image reviewed - Medical Decision Making 43-year-old male presents to ED with complaint of intermittent palpitations since yesterday. EKG is normal, troponin negative 2. Patient has been on the monitor during ED stay, no evidence of arrhythmia. Electrolytes are normal. Total CK is slightly elevated, however rhabdomyolysis is unlikely. Renal function is normal. Will discharge at this time. Patient advised to follow up with his PCP on an outpatient basis. Return precautions given. - Differential Diagnosis arrhythmia, electrolyte disturbance, ACS Critical care attestation.: If time is entered above; I have spent that time in minutes in the direct care of this critically ill patient, excluding procedure time. ED Disposition Clinical Impression: Palpitations Disposition: DC-01 TO HOME OR SELFCARE Is pt being admited?: No Condition: Stable Instructions: Palpitations (ED) Referrals: IRENE MCDONALD MD [Primary Care Provider] - 3-5 Days PRIMARY CAREMD [Referring] - 3-5 Days Time of Disposition: 02:20
[2019-05-25 02:13] LABS: Creatine Kinase MB 1.4 ng/mL (0.0-4.0)
[2019-05-25 02:17] VITALS: BP 127/87
== END 2019-05-25 02:57 | disposition home or self-care (01) ==
LOC: ED 21:51
DX: R00.2 Palpitations (principal); I11.0 Hypertensive heart disease with heart failure; I50.9 Heart failure, unspecified; M06.9 Rheumatoid arthritis, unspecified; I48.91 Unspecified atrial fibrillation; G47.30 Sleep apnea, unspecified; E87.6 Hypokalemia; Z87.891 Personal history of nicotine dependence; Z79.899 Other long term (current) drug therapy
CPT/HCPCS: 36415; 71046; 80053; 82550; 82553; 83735; 84484; 85025; 85610; 85730; 93005; 93010

== ENCOUNTER 2021-02-07 07:40 | Day surgery (SDC) | payer MEDICARE ==
[2021-02-07 08:23] LABS: Basophils % (Auto) 0.5 % (0.0-1.8); Eosinophils # (Auto) 0.1 K/mm3 (0.0-0.4); Eosinophils % (Auto) 1.5 % (0.0-4.3); Hematocrit 41.5 % (35.5-45.6); Hemoglobin 14.1 gm/dl (11.8-15.2); Lymphocytes # (Auto) 1.5 K/mm3 (1.2-5.4); Lymphocytes % (Auto) 29.7 % (13.4-35.0); Mean Corpuscular HGB Conc 34 % (32-34); Mean Corpuscular Volume 85 fl (84-94); Monocytes # (Auto) 0.6 K/mm3 (0.0-0.8); Monocytes % (Auto) 11.4 % (0.0-7.3); Platelet Count 305 K/mm3 (140-440); Red Blood Count 4.89 M/mm3 (3.65-5.03); Red Cell Distribution Width 12.5 % (13.2-15.2)
[2021-02-07 08:44] LABS: Blood Urea Nitrogen 8 mg/dL (9-20); Calcium 9.9 mg/dL (8.4-10.2); Hemolysis Index 3
[2021-02-07 08:47] LABS: BUN/Creatinine Ratio 11
[2021-02-07] MEDS ORDERED: SODIUM CHLORIDE 0.9% 500 ML 500 ML IV SCH (09:00)
[2021-02-07] MEDS ORDERED: HEPARIN/NS 5000 UNIT/500ML 1,000 ML IR ONE (09:18)
[2021-02-07 09:31] LABS: INR 0.9 (0.87-1.13)
[2021-02-07] MEDS: MIDAZOLAM 2 MG/2 ML INJ ONE ×2 (10:28→10:39)
[2021-02-07] MEDS: fentaNYL 100 MCG/2 ML INJ ONE ×2 (10:28→10:39)
[2021-02-07] MEDS: LIDOCAINE (2%) 20 MG/1 ML VIAL 20 ML MDV INFILTRATI ONE ×2 (10:28→10:42)
[2021-02-07] MEDS: HEPARIN 10,000 UNITS/10 ML VIAL ONE ×2 (10:28→10:43)
[2021-02-07] MEDS: VERAPAMIL 5 MG/2 ML INJ ONE ×2 (10:29→10:43)
[2021-02-07] MEDS: NITROGLYCERIN SYRINGE 3 ML ONE ×2 (10:30→10:43)
--- NOTE | 2021-02-07 11:21 | Discharge Summary ---
Short Stay Discharge Plan Activity: advance as tolerated Weight Bearing Status: Full Weight Bearing Diet: low fat, low cholesterol, low salt Wound: keep clean and dry Special Instructions: no heavy lifting (3 days) Follow up with: IRENE MCDONALD MD [Primary Care Provider] - 7 Days BERNARD BRYAN MD [Staff Physician] - 7 Days
[2021-02-07] MEDS ORDERED: traMADol 50 MG TAB PO PRN (11:30)
[2021-02-07] MEDS ORDERED: SODIUM CHLORIDE 0.9% 1000 ML 1,000 ML IV SCH (11:30)
--- NOTE | 2021-02-07 11:55 | Cardiac Catherization Report ---
DATE OF SERVICE: 02/07/2021 REASON FOR PROCEDURE: Cardiomyopathy, abnormal thallium stress test. PROCEDURES PERFORMED: 1. Left heart catheterization. 2. Selective left and right coronary angiography. 3. Left ventricular angiography. 4. Sedation time start 10:39, end 11:00. DESCRIPTION OF PROCEDURE: The patient was prepped and draped in a sterile fashion after informed consent. The right radial cath site was prepped and draped after negative Greg's test. The right radial artery was entered using Seldinger technique followed by placement of a 6-Portuguese hydrophilic sheath. Routine radial cocktail was administered via the sheath. Selective left and right coronary angiography was performed using a #3.5 left Gerry and a #4 right Gerry. A pigtail catheter was used for left ventricular angiography. The angiograms were reviewed. The catheters were then removed, sheath removed and hemostasis achieved using a TR band. The patient was returned to the postprocedure unit in stable condition. There were no complications. FINDINGS: HEMODYNAMICS: Left ventricular end diastolic pressure was 18, following coronary angiography. Ascending aortic pressure was 136/90. There was no significant pressure gradient on pullback across the aortic valve. CORONARY ANGIOGRAPHY: Left main coronary artery was angiographically normal. The left anterior descending artery contained mild irregularities in its mid segment. Otherwise, this vessel and its diagonal branches were angiographically normal. A large ramus intermedius artery was free of significant disease. The circumflex artery and its obtuse marginal branches were free of significant disease. The right coronary artery was dominant, and similarly angiographically normal. The left ventricle was mildly dilated. There was mild left ventricular systolic dysfunction with mild diffuse hypokinesis, left ventricular ejection fraction estimated at 40-45%. CONCLUSION: 1. Essentially, angiographically normal coronary arteries. 2. Mild nonischemic cardiomyopathy with mild diffuse hypokinesis, ejection fraction 40-45%. RECOMMENDATION: Risk factor modification and medical therapy. TID: [id number] RECEIPT: [id number] CA/SHE
[2021-02-07 14:02] VITALS: BP 131/82
[2021-02-07] MEDS ORDERED: hydrALAZINE 20 MG/1 ML INJ ONE (16:19)
--- NOTE | 2021-02-07 18:13 | Electrocardiograph Report ---
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
== END 2021-02-07 07:41 | disposition home or self-care (01) ==
LOC: CATHLABREC 07:40
PROVIDERS: ATTEND Internal Medicine Cardiovascular Disease
DX: I42.9 Cardiomyopathy, unspecified (principal); R06.00 Dyspnea, unspecified; I48.0 Paroxysmal atrial fibrillation; I11.0 Hypertensive heart disease with heart failure; I50.32 Chronic diastolic (congestive) heart failure; E78.00 Pure hypercholesterolemia, unspecified; G47.30 Sleep apnea, unspecified; N40.0 Benign prostatic hyperplasia without lower urinary tract symptoms; F41.9 Anxiety disorder, unspecified; Z79.899 Other long term (current) drug therapy; Z98.890 Other specified postprocedural states
CPT/HCPCS: 36415; 80048; 85025; 85610; 85730; 93005; 93458; 99156; C1894; J0360; J1644; J2250; J3010; J7040; Q9967